=== PATIENT | male | born 1935 | race Caucasian/White ===

== ENCOUNTER 2018-03-06 13:40 | Emergency (ER) | payer OTHER, SELFPAY ==
[2018-03-06 13:46] VITALS: BP 144/78; PULSE 78; RESP 18; TEMP 36.6; O2SAT 100
--- NOTE | 2018-03-06 13:49 | DI.RAD.S_ITS ---
PROCEDURE: XR FINGER RT MIN 2V INDICATIONS: crush injury to Right 3 (middle) finger TECHNIQUE: AP hand, 2 views of the 3rd (middle) finger(s) acquired. COMPARISON: [facility], , WRIST MINIMUM 3 VIEWS RIGHT, 09/10/2012, 11:00. [facility], , FOREARM RIGHT, 09/10/2012, 11:00. FINDINGS: Bones: No displaced fractures or dislocations are identified involving the 3rd right digit. Moderate degenerative changes of the 3rd digit are present, most pronounced involving the distal interphalangeal joint. There is a small metallic density identified on the dorsal-ulnar aspect of the mid portion of the proximal phalanx of the right 3rd digit. Moderate to severe degenerative changes are evident throughout the remainder of the right hand involving the interphalangeal joints, predominantly. The discrete degenerative changes are most pronounced involving the 2nd and 3rd digits. Soft tissues: Scattered vascular calcifications and chondrocalcinosis of the wrist are present. There is metallic density identified overlying the distal radius, which is not included on the orthogonal images. However, this density was present on previous exams and is unchanged. IMPRESSION: 1. Soft tissue swelling involving the distal aspect of the 3rd right digit. No fractures are evident. 2. Age-indeterminate metallic foreign body overlying the proximal phalanx of the 3rd digit. 3. Moderate to severe degenerative changes of the right hand are most pronounced involving the 2nd and 3rd digits. 4. 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 However, calcium pyrophosphate deposition disease may also have this appearance. Dictated by: Nadeem Sanders M.D. on 03/06/2018 at 13:20 Approved by: Nadeem Sanders M.D. on 03/06/2018 at 13:23
--- NOTE | 2018-03-06 14:08 | ED.SKABFB ---
HPI - Skin/Abscess/Foreign Bdy General Chief complaint: Skin/Abscess/Foreign Body Stated complaint: rt middle finger cut Time Seen by Provider: 03/06/18 13:52 Source: patient and family Mode of arrival: ambulatory Limitations: no limitations History of Present Illness HPI narrative: 82-year-old nonsmoking male presents with a chief complaint of an injury to the volar surface of his right middle finger just prior to arrival. He states his tetanus should be updated as he had a laceration last year. He was moving lumbar when a heavy piece of wood fell on his finger crushing the tip of his middle finger. He has full range of motion and denies any numbness or tingling but does have bleeding wound on the volar surface. He denies other injury and is otherwise well and free of complaint MD complaint: laceration Onset (ago): minute(s) Tetanus up to date: yes Location: R hand Severity: mild Quality: aching Pain Consistency: constant Relieving factors: none Exacerbating factors: none Treatments prior to arrival: none Related Data Home Medications Medication Instructions Recorded Confirmed CA PANTOTHENATE/FOLIC ACID/VIT 1 tab PO Q DAY #0 01/25/11 (MULTIVITAMIN) Fish Oil (#OMEGA-3 FISH OIL) 1,200 mg PO Q DAY #0 01/17/12 cholecalciferol (vitamin D3) 1,000 iu PO Q DAY #0 01/17/12 [Vitamin D3] Previous Rx's Medication Instructions Recorded bupropion HCl [Wellbutrin SR] 150 mg PO BID #180 tab 04/15/17 cephalexin [Keflex] 500 mg PO QID 7 Days #28 cap 03/06/18 Allergies Allergy/AdvReac Type Severity Reaction Status Date / Time No Known Drug Allergies Allergy Verified 03/06/18 13:48 Review of Systems Review of Systems All systems reviewed & are unremarkable except as noted in HPI and below Constitutional Denies chills, Denies fever(s), Denies lethargy and Denies weakness Eyes Denies change in vision, Denies eye discharge, Denies irritation and Denies loss of vision ENT Ears, Nose, Mouth, and Throat: Denies change in voice, Denies neck pain and Denies sore throat Cardiovascular Denies chest pain, Denies irregular heart rhythm, Denies lightheadedness, Denies palpitations, Denies dyspnea, Denies dyspnea on exertion and Denies orthopnea Respiratory Denies cough, Denies dyspnea, Denies dyspnea on exertion and Denies wheezing Gastrointestinal Gastrointestinal: Denies abdominal pain, Denies change in bowel habits, Denies diarrhea, Denies nausea and Denies vomiting Genitourinary Denies hematuria, Denies flank pain, Denies urinary incontinence and Denies urinary urgency Musculoskeletal Reports joint swelling, Reports limited range of motion and Denies neck pain Integumentary/Breasts Denies pruritus, Denies erythema, Denies rash and Reports wounds Neurologic Denies confusion, Denies loss of vision and Denies weakness Psychiatric Denies anxiety, Denies confusion, Denies depression, Denies homicidal ideation and Denies suicidal ideation Endocrine Denies palpitations Hematologic/Lymphatic Denies easy bruising Allergic/Immunologic Denies wheezing [facility] Medical History Diverticular disease (Chronic) 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) Hyperlipidemia (Chronic) Kidney disease (Chronic) Cataracts, bilateral (Resolved) Head injury (Resolved 01/31/17) History of brachytherapy (Resolved) Prostate cancer (Resolved) Surgical History History of left cataract surgery (Resolved 09/17/12) History of repair of rotator cuff (Resolved 2007) History of right cataract surgery (Resolved 10/01/12) History of tonsillectomy (Resolved) Family History Father Family history of alcohol abuse Alzheimer's disease Mother Fam hx-ischem heart disease Heart failure CAD (coronary artery disease) Diabetes mellitus Hypertension Stroke Social History Smoking Status: Never smoker Exam Narrative Exam Narrative: GEN: AOx3 and in mild distress EYES: Pupils are equal, round, and reactive to light and accommodation. Extraoccular muscles are intact bilaterally. There is no subconjunctival hemorrhage or exudate. CHEST: Lungs are clear to auscultation bilaterally and free of wheezes, rales, or rhonchi. Heart rate is regular rhythm, there are no murmurs, clicks, rubs, or gallops. There is no chest wall tenderness. ABD: Abdomen is soft and nontender. There is no guarding or rebound. Bowel sounds are normal in all 4 quadrants. There is no mass or organomegaly. EXT: Crush injury to distal right middle finger without subungual hematoma or any nail involvement. He has full but painful range of motion. Finger visualized under bloodless field SKIN: Warm, pink, and dry. No erythema or rash Initial Vital Signs Initial Vital Signs: Vital Signs Temperature 97.8 F 03/06/18 13:46 Pulse Rate 78 03/06/18 13:46 Respiratory Rate 18 03/06/18 13:46 Blood Pressure 144/78 H 03/06/18 13:46 Pulse Oximetry 100 03/06/18 13:46 Procedures Laceration Repair Laceration 1: Site: hand Side (If applicable): right Size (cm): 2 Description: flap Depth: simple, single layer Local Anesthetic: lidocaine 1% and with bicarb Pre-repair: wound explored Skin layer closed with: nylon Size (cm): 5-0 Number of sutures: 6 Technique: simple, interrupted Course Orders Ordered: ED Orders 03/06/18 13:49 XR finger RT min 2V Stat Vital Signs - 8 hr 03/06/18 13:46 03/06/18 15:37 Temperature 97.8 F 98.5 F Pulse Rate 78 70 Respiratory Rate 18 14 Blood Pressure 144/78 H Blood Pressure [Left Arm] 140/72 Pulse Oximetry 100 99 Discharge Plan Departure Patient Disposition: Home Clinical Impression: Laceration of finger, middle Discharge Date/Time: 03/06/18 15:38 Interventions: ED Discharge Assessment Last Done: 03/06/18 15:37 Instructions: DI for Laceration Repair Activity Restrictions/Additional Instructions: Please keep the wound clean and dry to the best of your ability. Please monitor for signs of infection such as redness to the skin or increasing pain. Have the sutures removed by your doctor in about 7 days. If you are unable to get into your doctor, we would be happy to remove the sutures in that same timeframe. Prescriptions: New cephalexin [Keflex] 500 mg capsule 500 mg PO QID 7 Days Qty: 28 RF: 0 No Action CA PANTOTHENATE/FOLIC ACID/VIT (MULTIVITAMIN) 1 tab PO Q DAY Qty: 0 RF: 0 cholecalciferol (vitamin D3) [Vitamin D3] 1,000 UNIT tablet 1,000 iu PO Q DAY Qty: 0 RF: 0 Fish Oil (#OMEGA-3 FISH OIL) 1,200 mg PO Q DAY Qty: 0 RF: 0 bupropion HCl [Wellbutrin SR] 150 MG tablet extended release 12 hr 150 mg PO BID Qty: 180 RF: 3 Referrals: Lucas Pickens MD [Primary Care Provider] -
[2018-03-06 15:37] VITALS: BP 140/72; PULSE 70; RESP 14; TEMP 36.9; O2SAT 99
== END 2018-03-06 15:38 | disposition home or self-care (01) ==
PROVIDERS: Emergency Provider Emergency Medicine; Family Provider Family Medicine; PCP Family Medicine
DX: S61.212A Laceration without foreign body of right middle finger without damage to nail, initial encounter (principal); W23.0XXA Caught, crushed, jammed, or pinched between moving objects, initial encounter
CPT/HCPCS: 73140; 99282; 99283

== ENCOUNTER → 2018-07-16 13:50 | Outpatient (CLI) | payer OTHER, SELFPAY ==
[2018-07-16 14:35] LABS: Add Manual Diff / Slide Review NO; Basophils Absolute Auto 0 /uL (0-100); Basophils Percent Auto 0.8 % (0-2); Eosinophils Absolute Auto 200 /uL (0-450); Eosinophils Percent Auto 4.2 % (2-4); Hematocrit 45.1 % (41-53); Hemoglobin 14.7 g/dL (13.5-17.5); Lymphocytes Absolute Auto 1300 /uL (1100-4500); Lymphocytes Percent Auto 25.5 % (25-40); Mean Corpuscular HGB Conc 32.6 % (30-36); Mean Corpuscular Hemoglobin 29.9 PG (26-34); Mean Corpuscular Volume 91.8 fL (80-100); Monocytes Absolute Auto 500 /uL (0-900); Monocytes Percent Auto 10.8 % (3-14); Neutrophils Absolute Auto 3000 /uL (1500-7000); Neutrophils Percent Auto 58.7 % (50-75); Platelet Count 301 X10^3/uL (150-400); Red Blood Cell Count 4.91 X10^6/uL (4.5-5.9); Red Cell Distribution Width 14.3 % (11.6-14.8)
[2018-07-16 14:52] LABS: Alanine Aminotransferase 39 IU/L (21-72); Albumin 4.4 g/dL (3.5-5.0); Albumin Globulin Ratio 1.2 (1.0-2.8); Alkaline Phosphatase 68 U/L (38-126); Aspartate Aminotransferase 47 IU/L (17-59); BUN Creatinine Ratio 15.8 (6-22); Bilirubin Total 0.5 mg/dL (0.2-1.3); Blood Urea Nitrogen 19 mg/dL (9-20); Carbon Dioxide 24 mmol/L (22-32); Chloride 105 mmol/L (98-107); Cholesterol 219 mg/dL (140-199); Estimated Glomerular Filt Rate 58.3 mL/min (>60); Globulin 3.7 g/dL (1.7-4.1); Glucose 107 mg/dL (80-110); HDL Cholesterol 55 mg/dL (40-60); HEMOLYSIS < 15 (0-50); LDL Cholesterol Calculated 150 mg/dL (<100); Potassium 4.2 mmol/L (3.4-5.1); Sodium 139 mmol/L (137-145); Total Protein 8.1 g/dL (6.3-8.2); Triglycerides 71 mg/dL (35-150)
[2018-07-16 15:41] LABS: Prostate Specific Antigen < 0.064 ng/mL (0.10-4.00)
[2018-07-16 15:41] LABS: Thyroid Stimulating Hormone 3.15 uIU/mL (0.47-4.68)
[2018-07-16 15:51] LABS: Creatinine Urine Random 145.5 mg/dL
[2018-07-16 15:54] LABS: Microalbumi Creatinin Ratio Ur 6.1 ug/mg CR (<30); Microalbumin Urine Random 0.9 mg/dL (0-1.6)
[2018-07-18 17:20] LABS: Fecal Immunochemical Test NOT DETECTED (NOT DETECTED)
== END ==
PROVIDERS: Family Provider Family Medicine; PCP Family Medicine; Visit Provider Urology
DX: E78.2 Mixed hyperlipidemia (principal); I10 Essential (primary) hypertension; R89.9 Unspecified abnormal finding in specimens from other organs, systems and tissues; R94.6 Abnormal results of thyroid function studies; Z85.46 Personal history of malignant neoplasm of prostate; Z12.11 Encounter for screening for malignant neoplasm of colon
CPT/HCPCS: 36415; 80053; 80061; 82043; 82274; 82570; 84153; 84443; 85025

== ENCOUNTER → 2018-08-07 08:37 | Outpatient (CLI) | payer OTHER, SELFPAY | PROVIDERS: Family Provider Family Medicine; PCP Family Medicine; Visit Provider Urology | DX: Z85.46 Personal history of malignant neoplasm of prostate (principal) | CPT/HCPCS: 36415; 84403 ==

== ENCOUNTER → 2019-09-08 09:51 | Outpatient (CLI) | payer OTHER, SELFPAY ==
[2019-09-08 11:35] LABS: Testosterone 121 ng/dL (71.8-623)
[2019-09-08 11:40] LABS: Prostate Specific Antigen < 0.064 ng/mL (0.10-4.00)
== END ==
PROVIDERS: Family Provider Family Medicine; PCP Family Medicine; Referring Provider Urology; Visit Provider Urology
DX: Z85.46 Personal history of malignant neoplasm of prostate (principal)
CPT/HCPCS: 36415; 84153; 84403

== ENCOUNTER → 2020-01-14 11:48 | Outpatient (CLI) | payer OTHER, SELFPAY ==
[2020-01-14 12:47] LABS: Add Manual Diff / Slide Review NO; Basophils Absolute Auto 0 /uL (0-100); Basophils Percent Auto 0.9 % (0-2); Eosinophils Absolute Auto 200 /uL (0-450); Eosinophils Percent Auto 3.2 % (2-4); Hematocrit 41.2 % (41-53); Hemoglobin 13.8 g/dL (13.5-17.5); Lymphocytes Absolute Auto 1200 /uL (1100-4500); Lymphocytes Percent Auto 21.7 % (25-40); Mean Corpuscular HGB Conc 33.4 % (30-36); Mean Corpuscular Volume 92.8 fL (80-100); Monocytes Absolute Auto 500 /uL (0-900); Neutrophils Absolute Auto 3600 /uL (1500-7000); Neutrophils Percent Auto 65.2 % (50-75); Platelet Count 326 X10^3/uL (150-400); Red Blood Cell Count 4.44 X10^6/uL (4.5-5.9); Red Cell Distribution Width 13.9 % (11.6-14.8); White Blood Cell Count 5.5 X10^3/uL (4.5-11.0)
[2020-01-14 13:07] LABS: Alanine Aminotransferase 19 IU/L (<50); Albumin 4.2 g/dL (3.5-5.0); Albumin Globulin Ratio 1.1 (1.0-2.8); Alkaline Phosphatase 78 U/L (38-126); Aspartate Aminotransferase 29 IU/L (17-59); BUN Creatinine Ratio 14.2 (6-22); Bilirubin Total 0.5 mg/dL (0.2-1.3); Blood Urea Nitrogen 17 mg/dL (9-20); Calcium 9.1 mg/dL (8.4-10.2); Carbon Dioxide 25 mmol/L (22-32); Chloride 104 mmol/L (98-107); Cholesterol 194 mg/dL (140-199); Globulin 3.7 g/dL (1.7-4.1); Glucose 123 mg/dL (80-110); HDL Cholesterol 53 mg/dL (40-60); HEMOLYSIS < 15 (0-50); LDL Cholesterol Calculated 129 mg/dL (<100); Potassium 4.4 mmol/L (3.4-5.1); Sodium 139 mmol/L (137-145); Total Protein 7.9 g/dL (6.3-8.2); Triglycerides 61 mg/dL (35-150)
== END ==
PROVIDERS: Family Provider Family Medicine; PCP Family Medicine; Referring Provider Family Medicine; Visit Provider Family Medicine
DX: E78.2 Mixed hyperlipidemia (principal)
CPT/HCPCS: 36415; 80053; 80061; 85025

== ENCOUNTER → 2020-02-02 13:56 | Outpatient (CLI) | payer OTHER, SELFPAY ==
[2020-02-03 14:36] LABS: Fecal Immunochemical Test Negative (Negative)
== END ==
PROVIDERS: Family Provider Family Medicine; PCP Family Medicine; Referring Provider Family Medicine; Visit Provider Family Medicine
DX: E78.2 Mixed hyperlipidemia (principal)
CPT/HCPCS: 82274

== ENCOUNTER → 2020-02-08 14:03 | Outpatient (CLI) | payer OTHER, SELFPAY ==
[2020-02-08 14:40] LABS: BUN Creatinine Ratio 15.6 (6-22); Blood Urea Nitrogen 20 mg/dL (9-20); Calcium 9.2 mg/dL (8.4-10.2); Carbon Dioxide 31 mmol/L (22-32); Chloride 106 mmol/L (98-107); Estimated Glomerular Filt Rate 53.8 mL/min (>60); Glucose 112 mg/dL (80-110); HEMOLYSIS < 15 (0-50); Hemoglobin A1C% w Est Avg Glu 6.3 % (4.0-6.0); Potassium 4.7 mmol/L (3.4-5.1); Sodium 141 mmol/L (137-145)
== END ==
PROVIDERS: Family Provider Family Medicine; PCP Family Medicine; Referring Provider Family Medicine; Visit Provider Family Medicine
DX: R73.9 Hyperglycemia, unspecified (principal)
CPT/HCPCS: 36415; 80048; 83036

== ENCOUNTER → 2020-03-23 13:08 | Outpatient (CLI) | payer OTHER, SELFPAY ==
[2020-03-23 13:55] LABS: BUN Creatinine Ratio 17.5 (6-22); Blood Urea Nitrogen 20 mg/dL (9-20); Estimated Glomerular Filt Rate > 60.0 mL/min (>60)
== END ==
PROVIDERS: Family Provider Family Medicine; PCP Family Medicine; Referring Provider Family Medicine; Visit Provider Family Medicine
DX: C61 Malignant neoplasm of prostate (principal); R94.4 Abnormal results of kidney function studies
CPT/HCPCS: 36415; 82565; 84520

== ENCOUNTER → 2020-05-24 14:29 | Outpatient (CLI) | payer OTHER, SELFPAY ==
[2020-05-24 15:59] LABS: Hemoglobin A1C% w Est Avg Glu 6.5 % (4.0-6.0)
[2020-05-24 16:09] LABS: BUN Creatinine Ratio 16.9 (6-22); Blood Urea Nitrogen 23 mg/dL (9-20); Carbon Dioxide 30 mmol/L (22-32); Chloride 104 mmol/L (98-107); Estimated Glomerular Filt Rate 50.2 mL/min (>60); Glucose 115 mg/dL (80-110); HEMOLYSIS < 15 (0-50); Potassium 4.3 mmol/L (3.4-5.1); Sodium 137 mmol/L (137-145)
== END ==
PROVIDERS: Family Provider Family Medicine; PCP Internal Medicine; Referring Provider Internal Medicine; Visit Provider Internal Medicine
DX: N18.9 Chronic kidney disease, unspecified (principal); E11.9 Type 2 diabetes mellitus without complications
CPT/HCPCS: 36415; 80048; 83036

== ENCOUNTER → 2020-08-25 09:16 | Outpatient (CLI) | payer OTHER, SELFPAY ==
[2020-08-25 10:33] LABS: Hemoglobin A1C% w Est Avg Glu 6.3 % (4.0-6.0)
== END ==
PROVIDERS: Family Provider Family Medicine; PCP Internal Medicine; Referring Provider Internal Medicine; Visit Provider Internal Medicine
DX: E11.21 Type 2 diabetes mellitus with diabetic nephropathy (principal); N18.31 Chronic kidney disease, stage 3a
CPT/HCPCS: 36415; 83036

== ENCOUNTER → 2020-09-29 14:18 | Outpatient (CLI) | payer OTHER, SELFPAY ==
[2020-09-29 18:52] LABS: Prostate Specific Antigen < 0.064 ng/mL (0.10-4.00)
== END ==
PROVIDERS: Family Provider Family Medicine; PCP Internal Medicine; Referring Provider Internal Medicine; Visit Provider Internal Medicine
DX: Z85.46 Personal history of malignant neoplasm of prostate (principal)
CPT/HCPCS: 36415; 84153

== ENCOUNTER 2020-10-22 17:48 | Emergency (ER) | payer OTHER, SELFPAY ==
[2020-10-22 18:08] VITALS: BP 151/85; PULSE 85; RESP 18; TEMP 36.8; O2SAT 99; BMI 24.4
--- NOTE | 2020-10-22 19:10 | ED.WOUNDLAC ---
HPI - Wound/Laceration General Chief Complaint: Wound/Laceration Stated Complaint: RT THUMB INJURY Time Seen by Provider: 10/22/20 18:52 Source: patient Mode of arrival: Family Vehicle Limitations: no limitations History of Present Illness HPI narrative: 84-year-old male nonsmoker with noncontributory medical history and current tetanus status presents with a chief complaint of an accidental injury to his right thumb. He states that he was working with a circular saw prior to his arrival and caused a large irregular laceration to the tip of his right thumb with soft tissue loss. There was fair amount of bleeding initially, he washed it heavily and presents to us. He has very little pain and is otherwise well and free of complaint Onset (ago): hour(s) Body four view annotation: 1. Place: home Patient tetanus UTD: Yes Context: accidental Treatments prior to arrival: bandage Related Data Home Medications Medication Instructions Recorded Confirmed CA PANTOTHENATE/FOLIC ACID/VIT 1 tab PO Q DAY #0 01/25/11 10/20/20 (MULTIVITAMIN) Fish Oil (#OMEGA-3 FISH OIL) 1,200 mg PO Q DAY #0 01/17/12 10/20/20 cholecalciferol (vitamin D3) 1,000 iu PO Q DAY #0 01/17/12 10/20/20 [Vitamin D3] Calcium Citrate w/Magnesium 2 tab PO BEDTIME 01/01/20 10/20/20 Previous Rx's Medication Instructions Recorded bupropion HCl 150 mg tablet,12 hr 150 mg PO BID #180 tab 10/27/19 sustained-release cephalexin 500 mg PO Q6H 7 Days #28 cap 10/22/20 Allergies Allergy/AdvReac Type Severity Reaction Status Date / Time No Known Drug Allergies Allergy Verified 10/22/20 18:08 Review of Systems Constitutional Constitutional: Denies chills, Denies fatigue, Denies fever(s), Denies frequent falls, Denies lethargy and Denies weakness Eyes Eyes: Denies change in vision, Denies eye discharge, Denies irritation and Denies loss of vision ENT Ears, Nose, Mouth, and Throat: Denies change in voice, Denies dizziness, Denies neck pain, Denies sore throat and Denies throat swelling Cardiovascular Cardiovascular: Denies chest pain, Denies irregular heart rhythm, Denies lightheadedness, Denies palpitations, Denies dyspnea, Denies dyspnea on exertion and Denies orthopnea Respiratory Respiratory: Denies cough, Denies dyspnea, Denies dyspnea on exertion and Denies wheezing Gastrointestinal Gastrointestinal: Denies abdominal pain, Denies change in bowel habits, Denies diarrhea, Denies nausea and Denies vomiting Musculoskeletal Musculoskeletal: Denies neck pain and Denies numbness Integumentary/Breasts Skin/Breast: Denies pruritus, Denies erythema, Denies rash and Reports wounds Neurologic Neurologic: Denies behavioral changes, Denies confusion, Denies dizziness, Denies frequent falls, Denies loss of vision, Denies numbness and Denies weakness Psychiatric Psychiatric: Denies anxiety, Denies behavioral changes, Denies confusion, Denies depression, Denies homicidal ideation and Denies suicidal ideation Endocrine Endocrine: Denies fatigue, Denies flushing and Denies palpitations Hematologic/Lymphatic Hematologic/Lymphatic: Denies easy bruising Allergic/Immunologic Allergic/Immunologic: Denies urticaria, Denies throat swelling and Denies wheezing Patient History Medical History Cataracts, bilateral Diverticular disease 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 Head injury (01/31/17) History of brachytherapy History of malignant neoplasm of prostate Hyperlipidemia Kidney disease Prostate cancer Surgical History History of left cataract surgery (09/17/12) History of repair of rotator cuff (2007) History of right cataract surgery (10/01/12) History of tonsillectomy Family History Father Family history of alcohol abuse Alzheimer's disease Mother Fam hx-ischem heart disease Heart failure CAD (coronary artery disease) Diabetes mellitus Hypertension Stroke Social History Smoking Status: Never smoker Smoking Status: Never smoker alcohol intake frequency: holidays/special occasions only Substance Use Type: does not use Exam Narrative Exam Narrative: GEN: AOx3 and in mild distress EYES: Pupils are equal, round, and reactive to light and accommodation. Extraoccular muscles are intact bilaterally. There is no subconjunctival hemorrhage or exudate. CHEST: Lungs are clear to auscultation bilaterally and free of wheezes, rales, or rhonchi. Heart rate is regular rhythm, there are no murmurs, clicks, rubs, or gallops. There is no chest wall tenderness. ABD: Abdomen is soft and nontender. There is no guarding or rebound. Bowel sounds are normal in all 4 quadrants. There is no mass or organomegaly. EXT: Full range of motion of right thumb, large regular avulsion type laceration with soft tissue loss measuring 2 x 1 cm on lateral thumb distal to the interphalangeal joint. No active bleeding, no foreign body, no exposure of bone or tendon. SKIN: Warm, pink, and dry. No erythema or rash Initial Vital Signs Initial Vital Signs: Vital Signs Temperature 98.3 F 10/22/20 18:08 Pulse Rate 85 10/22/20 18:08 Respiratory Rate 18 10/22/20 18:08 Blood Pressure 151/85 H 10/22/20 18:08 Pulse Oximetry 99 10/22/20 18:08 Course Orders Ordered: Discontinued Medications Bupivacaine HCl (Bupivacaine 0.5% (Pf) Vial) 5 ml SUBCUT NOW ONE Stop: 10/22/20 20:30 Last Admin: 10/22/20 21:02 Dose: 5 ml Documented by: GRAHAM Cefazolin Sodium (Cephalexin 250 Mg Prepack) 1 bottle MISC SEEINSTR ONE Stop: 10/22/20 20:30 Last Admin: 10/22/20 21:03 Dose: 1 bottle Documented by: GRAHAM Consultations Consultation #1: Discussed with on-call orthopedist who recommends washing, antibiotics, tetanus update, wet to dry dressing and follow-up with wound care Vital Signs Vital signs: Vital Signs - 8 hr 10/22/20 22:43 Pulse Rate 72 Respiratory Rate 16 Blood Pressure 128/73 Pulse Oximetry 99 MDM - Wound/Laceration Imaging Data Extremity x-ray #1: Radiologist's Impression: [address] [address] ReportSigned Patient: Jluis Perea LMR#: [id number]: [id number]:[id number]/Sex: 84 / MDate of Service: 10/22/20Loc: EDAccession Number: [id number] Procedure: XR finger RT min 2V Ordering Provider: Willie Dumont D.O. PROCEDURE: XR FINGER RT MIN 2V INDICATIONS: deep thumb laceration from power tool TECHNIQUE: AP hand, 2 views of the 3 finger(s) acquired. COMPARISON: [facility], CR, XR FINGER RT MIN 2V, 03/06/2018, 13:58. FINDINGS: Bones: No fractures or dislocations. No suspicious bony lesions. Prominent multilevel IP arthritic changes particularly at 2nd DIP joints. Soft tissues: No suspicious soft tissue calcifications. Rounded metallic density is noted overlying the distal radial shaft. IMPRESSION: 1. No visualized acute fracture or dislocation. However, if clinical concern and/or pain persist, short interval imaging followup in 7-10 days is recommended, as occult injury cannot be definitively excluded. 2. Rounded metallic density overlying distal radius. Recommend correlation to area of foreign body concern. Dictated by: Ashley Winter M.D. on 10/22/2020 at 22:06 Approved by: Ashley Winter M.D. on 10/22/2020 at 22:08 Discharge Plan Departure Patient Disposition: Home Clinical Impression: Laceration of thumb, right, complicated Qualifiers: Encounter type: initial encounter Qualified Code(s): S61.011A - Laceration without foreign body of right thumb without damage to nail, initial encounter Instructions: DI for Avulsion Laceration (Not Requiring Sutures) Activity Restrictions/Additional Instructions: *You have been diagnosed with [ Avulsion laceration of right thumb, no sutures indicated you will need dressing changes and follow up with wound care] *What to do: *Please continue to take your regular medications as directed. [x] prescription sent to your pharmacy ([facility]) [ ] New medication written as a paper prescription [ ] No new medications given *Please follow up with Wound Care in 2-3 days, call for an appointment. Let them know you were seen in the Emergency Department and that we ask that you be seen in follow up. We will electronically transmit a record of today's note if your PCP is in our system *If you do not have a primary care provider please contact the [facility] Resource line at [phone]. They will ask some questions about your medical history and help get you set up with a doctor in the community. *Return to Emergency Department if you should have any new, worsening or concerning symptoms, such as [fever greater than 101 F, shaking chills, worsening pain, persistent vomiting or other bothersome symptoms] Prescriptions: New cephalexin 500 mg capsule 500 mg PO Q6H 7 Days Qty: 28 RF: 0 No Action CA PANTOTHENATE/FOLIC ACID/VIT (MULTIVITAMIN) 1 tab PO Q DAY Qty: 0 RF: 0 cholecalciferol (vitamin D3) [Vitamin D3] 1,000 UNIT tablet 1,000 iu PO Q DAY Qty: 0 RF: 0 Fish Oil (#OMEGA-3 FISH OIL) 1,200 mg PO Q DAY Qty: 0 RF: 0 bupropion HCl [Wellbutrin SR] 150 mg tablet sustained-release 12 hr 150 mg PO BID Qty: 180 RF: 1 Calcium Citrate w/Magnesium 2 tab PO BEDTIME RF: 0 Referrals: Dylan Real MD [Physician] - Cody Quinones MD [Primary Care Provider] -
--- NOTE | 2020-10-22 20:29 | DI.RAD.S_ITS ---
PROCEDURE: XR FINGER RT MIN 2V INDICATIONS: deep thumb laceration from power tool TECHNIQUE: AP hand, 2 views of the 3 finger(s) acquired. COMPARISON: [facility], , XR FINGER RT MIN 2V, 03/06/2018, 13:58. FINDINGS: Bones: No fractures or dislocations. No suspicious bony lesions. Prominent multilevel IP arthritic changes particularly at 2nd DIP joints. Soft tissues: No suspicious soft tissue calcifications. Rounded metallic density is noted overlying the distal radial shaft. IMPRESSION: 1. No visualized acute fracture or dislocation. However, if clinical concern and/or pain persist, short interval imaging followup in 7-10 days is recommended, as occult injury cannot be definitively excluded. 2. Rounded metallic density overlying distal radius. Recommend correlation to area of foreign body concern. Dictated by: Ashley Winter M.D. on 10/22/2020 at 22:06 Approved by: Ashley Winter M.D. on 10/22/2020 at 22:08
[2020-10-22] MEDS: BUPIVACAINE 0.5% (PF) VIAL 5 ML SUBCUT (21:02)
[2020-10-22] MEDS: cephALEXin 250 MG PREPACK 1 BOTTLE MISC (21:03)
[2020-10-22 22:43] VITALS: BP 128/73; PULSE 72; RESP 16; O2SAT 99
== END 2020-10-22 22:44 | disposition home or self-care (01) ==
PROVIDERS: Emergency Provider Emergency Medicine; Family Provider Family Medicine; PCP Internal Medicine
DX: S61.011A Laceration without foreign body of right thumb without damage to nail, initial encounter (principal); W29.3XXA Contact with powered garden and outdoor hand tools and machinery, initial encounter
CPT/HCPCS: 73140; 99283

== ENCOUNTER → 2020-11-02 13:01 | Outpatient (CLI) | payer OTHER, SELFPAY | PROVIDERS: Family Provider Internal Medicine; PCP Internal Medicine; Referring Provider Emergency Medicine; Visit Provider Family Medicine | DX: E11.628 Type 2 diabetes mellitus with other skin complications (principal); S61.001A Unspecified open wound of right thumb without damage to nail, initial encounter | CPT/HCPCS: 11042; 99204; 99213 ==

== ENCOUNTER → 2020-11-10 13:57 | Outpatient (CLI) | payer OTHER, SELFPAY | PROVIDERS: Family Provider Internal Medicine; PCP Internal Medicine; Referring Provider Internal Medicine; Visit Provider Family Medicine | DX: E11.628 Type 2 diabetes mellitus with other skin complications (principal); S61.001A Unspecified open wound of right thumb without damage to nail, initial encounter; R60.0 Localized edema | CPT/HCPCS: 11042 ==

== ENCOUNTER → 2020-11-17 14:47 | Outpatient (CLI) | payer OTHER, SELFPAY | PROVIDERS: Family Provider Internal Medicine; PCP Internal Medicine; Referring Provider Internal Medicine; Visit Provider Family Medicine | DX: E11.628 Type 2 diabetes mellitus with other skin complications (principal); S61.001A Unspecified open wound of right thumb without damage to nail, initial encounter; R60.0 Localized edema | CPT/HCPCS: 11042 ==

== ENCOUNTER → 2020-11-24 13:31 | Outpatient (CLI) | payer OTHER, SELFPAY | PROVIDERS: Family Provider Internal Medicine; PCP Internal Medicine; Referring Provider Internal Medicine; Visit Provider Family Medicine | DX: S61.011A Laceration without foreign body of right thumb without damage to nail, initial encounter (principal); E11.628 Type 2 diabetes mellitus with other skin complications; W31.2XXS Contact with powered woodworking and forming machines, sequela | CPT/HCPCS: 11042 ==

== ENCOUNTER → 2020-12-01 15:27 | Outpatient (CLI) | payer OTHER, SELFPAY | PROVIDERS: Family Provider Internal Medicine; PCP Internal Medicine; Referring Provider Internal Medicine; Visit Provider Family Medicine | DX: S61.001A Unspecified open wound of right thumb without damage to nail, initial encounter (principal); E11.628 Type 2 diabetes mellitus with other skin complications; M79.641 Pain in right hand | CPT/HCPCS: 11042 ==

== ENCOUNTER → 2020-12-12 14:59 | Outpatient (CLI) | payer OTHER, SELFPAY | PROVIDERS: Family Provider Internal Medicine; PCP Internal Medicine; Referring Provider Internal Medicine; Visit Provider Family Medicine | DX: S61.001D Unspecified open wound of right thumb without damage to nail, subsequent encounter (principal) | CPT/HCPCS: 99212; 99213 ==

== ENCOUNTER 2022-03-13 10:07 | Emergency (ER) | payer MEDICARE, SELFPAY ==
[2022-03-13 10:50] VITALS: BP 131/77; PULSE 86; RESP 14; TEMP 36.8; O2SAT 99
[2022-03-13 11:19] LABS: Add Manual Diff / Slide Review NO; Basophils Absolute Auto 0 /uL (0-100); Basophils Percent Auto 0.2 % (0-2); Eosinophils Absolute Auto 0 /uL (0-450); Hematocrit 42.7 % (41-53); Hemoglobin 13.9 g/dL (13.5-17.5); Lymphocytes Absolute Auto 1000 /uL (1100-4500); Lymphocytes Percent Auto 5.9 % (25-40); Mean Corpuscular HGB Conc 32.7 % (30-36); Mean Corpuscular Hemoglobin 30.2 PG (26-34); Mean Corpuscular Volume 92.6 fL (80-100); Monocytes Absolute Auto 1400 /uL (0-900); Monocytes Percent Auto 8.2 % (3-14); Neutrophils Absolute Auto 14100 /uL (1500-7000); Neutrophils Percent Auto 85.7 % (50-75); Platelet Count 315 X10^3/uL (150-400); Red Blood Cell Count 4.61 X10^6/uL (4.5-5.9); Red Cell Distribution Width 14.5 % (11.6-14.8); White Blood Cell Count 16.5 X10^3/uL (4.5-11.0)
[2022-03-13 11:26] LABS: Alanine Aminotransferase 22 IU/L (<50); Albumin Globulin Ratio 1.3 (1.0-2.8); Alkaline Phosphatase 60 U/L (38-126); Aspartate Aminotransferase 33 IU/L (17-59); Bilirubin Total 0.4 mg/dL (0.2-1.3); Blood Urea Nitrogen 32 mg/dL (9-20); Calcium 9.4 mg/dL (8.4-10.2); Carbon Dioxide 24 mmol/L (22-32); Chloride 103 mmol/L (98-107); Estimated Glomerular Filt Rate 50 mL/min (>60); Globulin 3.2 g/dL (1.7-4.1); Glucose 125 mg/dL (80-110); HEMOLYSIS < 15 (0-50); Potassium 3.6 mmol/L (3.4-5.1); Sodium 140 mmol/L (137-145); Total Protein 7.2 g/dL (6.3-8.2)
[2022-03-13 11:47] VITALS: PULSE 88; O2SAT 97
[2022-03-13 11:50] VITALS: BP 119/72; PULSE 86; RESP 21; O2SAT 98
[2022-03-13 12:00] VITALS: BP 113/57; PULSE 85; RESP 30; O2SAT 95
--- NOTE | 2022-03-13 12:19 | PC.NURSE ---
Pt reports intermittent sharp pain in stomach after eating. Nausea/vomiting intermittent since saturday and also noticed dark stools. Denies dizziness/no syncopal episodes. Hasn't been able to eat, but is able to keep water down.
[2022-03-13 12:30] VITALS: PULSE 91; RESP 30; O2SAT 98
[2022-03-13 12:31] VITALS: BP 117/58; PULSE 91; RESP 36; O2SAT 98
[2022-03-13 12:48] LABS: Lipase 51 U/L (23-300)
--- NOTE | 2022-03-13 12:54 | DI.CT.S_ITS ---
PROCEDURE: CT ABDOMEN PELVIS W CON INDICATIONS: ?gi bleed; diarrhea TECHNIQUE: After the administration of intravenous contrast, axial sections acquired from the lung bases to the pubic symphysis. Coronal and sagittal reformats were performed. For radiation dose reduction, the following was used: automated exposure control, adjustment of mA and/or kV according to patient size. COMPARISON: None. FINDINGS: Image quality: Excellent. Lung bases: Unremarkable. Heart: No significant findings. Miscellaneous: Large hiatal hernia containing the entirety of the stomach, within or Beano axial volvulus, typically not an urgent finding. ABDOMEN: Liver: Unremarkable. Gallbladder: Unremarkable. Biliary ducts: Unremarkable. Pancreas: Unremarkable. Spleen: Unremarkable. Adrenal Glands: Unremarkable. Kidneys and Ureters: Unremarkable. 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 A thickened part of the stomach near the entrance to the abdomen is felt to represent the pyloric region of the stomach. It is likely a normal appearing gastric pylorus. Small bowel unremarkable. Extensive sigmoid diverticulosis without evidence of diverticulitis. Peritoneum: No abnormal intraperitoneal fluid. No free air. Ventral Wall: No hernias. Abdominal Nodes: No retroperitoneal or mesenteric adenopathy by size criteria. Vessels: Aorta and inferior vena cava are normal in size. PELVIS: Pelvic Organs: Prostate implant seeds. Bladder: Unremarkable. Pelvic Nodes: No enlarged lymph nodes. Miscellaneous: No hernias are seen. Bones: Lumbar degenerative change. No lytic or blastic bony lesions. No compression fractures. IMPRESSION: 1. Large hiatal hernia containing stomach, which has undergone organo-axial volvulus, typically not an emergent finding. However, suggest clinical correlation. 2. Extensive sigmoid diverticulosis without evidence of diverticulitis. 3. Prostate implant seeds. 4. No evidence of metastatic disease. Dictated by: Jefferson Adams M.D. on 03/13/2022 at 14:29 Approved by: Jefferson Adams M.D. on 03/13/2022 at 14:52
--- NOTE | 2022-03-13 12:54 | DI.RAD.S_ITS ---
PROCEDURE: XR CHEST 2V INDICATIONS: gi bleed TECHNIQUE: 2 views of the chest were acquired. COMPARISON: [facility], , CHEST 2 VIEW, 04/11/2007, 14:03. FINDINGS: Surgical changes and devices: None. Lungs and pleura: Lungs are clear. No pleural effusions or pneumothorax. Mediastinum: Moderate hiatal hernia. Mediastinal contours are normal. Heart size is normal. Bones and chest wall: No suspicious bony abnormalities. Soft tissues appear unremarkable. IMPRESSION: Moderate hiatal hernia. No acute cardiopulmonary process demonstrated radiographically. Dictated by: Duke Alfonso M.D. on 03/13/2022 at 14:48 Approved by: Duke Alfonso M.D. on 03/13/2022 at 14:49
[2022-03-13 13:59] LABS: Bacteria Urine Many (>30); RBC Urine None Seen (0-5/HPF); WBC Urine 30-100/HPF (0-5/HPF)
--- NOTE | 2022-03-13 15:14 | ED_ITS ---
HPI - GI Bleed <Doris Alonso PA-C - Last Filed: 03/13/22 17:56> General Chief complaint: GI Bleed Stated complaint: suspect upper GI bleeding t-2 Time Seen by Provider: 03/13/22 12:03 Source: patient Mode of arrival: Wheelchair History of Present Illness HPI Narrative: 86-year-old male with past medical history hyperlipidemia, malignant neoplasm of the prostate presents to the ED with 3 days of nausea, vomiting, diarrhea. Patient states that his symptoms started 2 days ago when he started vomiting, with repeated episodes through the night. Patient later started experiencing several bouts of diarrhea. Patient states that the vomit and stool appeared dark, but with no chin blood. Patient denies fever, chills, chest pain, shortness of breath, lightheadedness, dizziness, syncope. Patient also states that as of this morning, he is symptom-free, is able to tolerate p.o. Related Data Home Medications Medication Instructions Recorded Confirmed CA PANTOTHENATE/FOLIC ACID/VIT 1 tab PO Q DAY ##0 01/25/11 10/20/20 (MULTIVITAMIN) Fish Oil (#OMEGA-3 FISH OIL) 1,200 mg PO Q DAY ##0 01/17/12 10/20/20 cholecalciferol (vitamin D3) 25 1,000 iu PO Q DAY ##0 01/17/12 10/20/20 mcg (1,000 unit) tablet (Vitamin D3) Calcium Citrate w/Magnesium 2 tab PO BEDTIME 01/01/20 10/20/20 Previous Rx's Medication Instructions Recorded bupropion HCl 150 mg tablet,12 hr 150 mg PO BID #180 tabs 10/27/19 sustained-release (Wellbutrin SR) cefpodoxime 200 mg tablet 200 mg PO Q12H 10 days #20 tabs 03/13/22 famotidine 40 mg tablet (Pepcid) 40 mg PO BID #60 tabs 03/15/22 ondansetron 4 mg disintegrating 4 mg PO Q6H PRN nausea and 03/15/22 tablet vomiting #10 tabs Allergies Allergy/AdvReac Type Severity Reaction Status Date / Time No Known Drug Allergies Allergy Verified 03/15/22 11:02 Review of Systems <Doris Alonso PA-C - Last Filed: 03/13/22 17:56> Review of Systems ROS Unobtainable: All systems reviewed & are unremarkable except as noted in HPI and below Constitutional Constitutional: Denies chills, Denies fatigue, Denies fever(s), Denies frequent falls, Denies lethargy and Denies weakness Eyes Eyes: Denies change in vision, Denies eye discharge, Denies irritation and Denies loss of vision ENT Ears, Nose, Mouth, and Throat: Denies change in voice, Denies dizziness, Denies neck pain, Denies sore throat and Denies throat swelling Cardiovascular Cardiovascular: Denies chest pain, Denies irregular heart rhythm, Denies lightheadedness, Denies palpitations, Denies dyspnea, Denies dyspnea on exertion and Denies orthopnea Respiratory Respiratory: Denies cough, Denies dyspnea, Denies dyspnea on exertion and Denies wheezing Gastrointestinal Gastrointestinal: Denies abdominal pain, Denies change in bowel habits, Reports diarrhea, Reports nausea and Reports vomiting Genitourinary Genitourinary: Denies hematuria, Denies flank pain, Denies urinary incontinence and Denies urinary urgency Musculoskeletal Musculoskeletal: Denies back pain, Denies muscle weakness, Denies neck pain, Denies numbness and Denies tingling Integumentary/Breasts Skin/Breast: Denies pruritus, Denies erythema, Denies rash and Denies wounds Neurologic Neurologic: Denies behavioral changes, Denies confusion, Denies dizziness, Denies frequent falls, Denies loss of vision, Denies numbness, Denies tingling and Denies weakness Psychiatric Psychiatric: Denies anxiety, Denies behavioral changes, Denies confusion, Denies depression, Denies homicidal ideation and Denies suicidal ideation Endocrine Endocrine: Denies fatigue, Denies flushing and Denies palpitations Hematologic/Lymphatic Hematologic/Lymphatic: Denies easy bruising Allergic/Immunologic Allergic/Immunologic: Denies urticaria, Denies throat swelling and Denies wheezing Patient History <Doris Alonso PA-C - Last Filed: 03/13/22 17:56> Medical History Cataracts, bilateral Diverticular disease 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 Head injury (01/31/17) History of brachytherapy History of malignant neoplasm of prostate Hyperlipidemia Kidney disease Prostate cancer Surgical History History of left cataract surgery (09/17/12) History of repair of rotator cuff (2007) History of right cataract surgery (10/01/12) History of tonsillectomy Family History Father Family history of alcohol abuse Alzheimer's disease Mother Fam hx-ischem heart disease Heart failure CAD (coronary artery disease) Diabetes mellitus Hypertension Stroke Social History Smoking Status: Never smoker Smoking Status: Never smoker alcohol intake frequency: holidays/special occasions only Substance Use Type: does not use Exam <Doris Alonso PA-C - Last Filed: 03/13/22 17:56> Narrative Exam Narrative: Const General:?cooperative, healthy appearing and comfortable HENMT Head:?normal to inspection Ears:?hearing grossly normal bilaterally Nose:?external nose normal Face and sinus:?normal facial exam and sinuses nontender Mouth:?oral mucosae normal Throat:?posterior oropharynx normal Eyes General:?appearance normal, both eyes and all related structures Neck Neck:?normal visual inspection and no lymphadenopathy noted Resp Effort & Inspection:?normal respiratory effort Auscultation:?clear to auscultation bilaterally Cardio Rate:?regular rate Rhythm:?regular rhythm GI Abdomen is soft, nondistended, nontender to palpation. There is no CVA tenderness. Guaiac positive. Neuro General:?patient alert, patient awake and patient oriented x3 Initial Vital Signs Initial Vital Signs: Vital Signs Temperature 98.2 F 03/13/22 10:50 Pulse Rate 86 03/13/22 10:50 Respiratory Rate 14 03/13/22 10:50 Blood Pressure 131/77 03/13/22 10:50 Pulse Oximetry 99 03/13/22 10:50 Oxygen Delivery Method 03/13/22 10:50 <Heidy Aguero DO - Last Filed: 03/15/22 19:03> Initial Vital Signs Initial Vital Signs: Vital Signs Temperature 98.2 F 03/13/22 10:50 Pulse Rate 86 03/13/22 10:50 Respiratory Rate 14 03/13/22 10:50 Blood Pressure 131/77 03/13/22 10:50 Pulse Oximetry 99 03/13/22 10:50 Oxygen Delivery Method 03/13/22 10:50 Course <Doris Alonso PA-C - Last Filed: 03/13/22 17:56> Orders Ordered: ED Orders 03/13/22 10:58 EKG-12 Lead Routine 03/13/22 11:16 Complete Blood Count AUTO DIFF Stat Comprehensive Metabolic Panel Stat Lipase Stat 03/13/22 12:54 CT abdomen pelvis w con Stat CXR [XR chest 2V] Stat 03/13/22 12:58 Urine Culture Stat Urine Microscopic Stat Vital Signs Vital signs: Vital Signs - 8 hr 03/13/22 10:50 03/13/22 11:47 03/13/22 11:50 Temperature 98.2 F Pulse Rate 86 88 Respiratory Rate 14 Blood Pressure 131/77 119/72 Pulse Oximetry 99 97 Oxygen Delivery Method Room Air 03/13/22 11:50 03/13/22 12:00 03/13/22 12:00 Temperature Pulse Rate 86 85 Respiratory Rate 21 30 H Blood Pressure 113/57 L Pulse Oximetry 98 95 Oxygen Delivery Method 03/13/22 12:30 03/13/22 12:31 03/13/22 12:31 Temperature Pulse Rate 91 H 91 H Respiratory Rate 30 H 36 H Blood Pressure 117/58 L Pulse Oximetry 98 98 Oxygen Delivery Method <Heidy Aguero DO - Last Filed: 03/15/22 19:03> Orders Ordered: ED Orders 03/13/22 10:58 EKG-12 Lead Routine 03/13/22 11:16 Complete Blood Count AUTO DIFF Stat Comprehensive Metabolic Panel Stat Lipase Stat 03/13/22 12:54 CT abdomen pelvis w con Stat CXR [XR chest 2V] Stat 03/13/22 12:58 Urine Culture Stat Urine Microscopic Stat Vital Signs Vital signs: Vital Signs - 8 hr 03/13/22 10:50 03/13/22 11:47 03/13/22 11:50 Temperature 98.2 F Pulse Rate 86 88 Respiratory Rate 14 Blood Pressure 131/77 119/72 Pulse Oximetry 99 97 Oxygen Delivery Method Room Air 03/13/22 11:50 03/13/22 12:00 03/13/22 12:00 Temperature Pulse Rate 86 85 Respiratory Rate 21 30 H Blood Pressure 113/57 L Pulse Oximetry 98 95 Oxygen Delivery Method 03/13/22 12:30 03/13/22 12:31 11/15/22 12:31 Temperature Pulse Rate 91 H 91 H Respiratory Rate 30 H 36 H Blood Pressure 117/58 L Pulse Oximetry 98 98 Oxygen Delivery Method MDM - GI Bleed <Doris Alonso PA-C - Last Filed: 03/13/22 17:56> Lab Data Result diagrams: 03/13/22 11:16 03/13/22 11:16 Labs: Lab Results 03/13/22 03/13/22 03/13/22 Range/Units 11:16 11:16 11:16 WBC 16.5 H (4.5-11.0) X10^3/uL RBC 4.61 (4.5-5.9) X10^6/uL Hgb 13.9 (13.5-17.5) g/dL Hct 42.7 (41-53) % MCV 92.6 (80-100) fL MCH 30.2 (26-34) PG MCHC 32.7 (30-36) % RDW 14.5 (11.6-14.8) % Plt Count 315 (150-400) X10^3/uL Neut % (Auto) 85.7 H (50-75) % Lymph % (Auto) 5.9 L (25-40) % Sanders % (Auto) 8.2 (3-14) % Eos % (Auto) 0.0 L (2-4) % Baso % (Auto) 0.2 (0-2) % Neut # (Auto) 48252 H (1238-6423) /uL Lymph # (Auto) 1000 L (4360-4893) /uL Sanders # (Auto) 1400 H (0-900) /uL Eos # (Auto) 0 (0-450) /uL Baso # (Auto) 0 (0-100) /uL Sodium 140 (137-145) mmol/L Potassium 3.6 (3.4-5.1) mmol/L Chloride 103 (98-107) mmol/L Carbon Dioxide 24 (22-32) mmol/L BUN 32 H (9-20) mg/dL Creatinine 1.39 H (0.66-1.25) mg/dL Estimated GFR 50 L (>60) mL/min BUN/Creatinine Ratio 23.0 H (6-22) Glucose 125 H (80-110) mg/dL Calcium 9.4 (8.4-10.2) mg/dL Total Bilirubin 0.4 (0.2-1.3) mg/dL AST 33 (17-59) IU/L ALT 22 (<50) IU/L Alkaline Phosphatase 60 (38-126) U/L Total Protein 7.2 (6.3-8.2) g/dL Albumin 4.0 (3.5-5.0) g/dL Globulin 3.2 (1.7-4.1) g/dL Albumin/Globulin Ratio 1.3 (1.0-2.8) Lipase 51 (23-300) U/L Urine RBC (0-5/HPF) Urine WBC (0-5/HPF) Urine Bacteria (None) 03/13/22 Range/Units 12:58 WBC (4.5-11.0) X10^3/uL RBC (4.5-5.9) X10^6/uL Hgb (13.5-17.5) g/dL Hct (41-53) % MCV (80-100) fL MCH (26-34) PG MCHC (30-36) % RDW (11.6-14.8) % Plt Count (150-400) X10^3/uL Neut % (Auto) (50-75) % Lymph % (Auto) (25-40) % Sanders % (Auto) (3-14) % Eos % (Auto) (2-4) % Baso % (Auto) (0-2) % Neut # (Auto) (2428-6209) /uL Lymph # (Auto) (7742-2477) /uL Sanders # (Auto) (0-900) /uL Eos # (Auto) (0-450) /uL Baso # (Auto) (0-100) /uL Sodium (137-145) mmol/L Potassium (3.4-5.1) mmol/L Chloride (98-107) mmol/L Carbon Dioxide (22-32) mmol/L BUN (9-20) mg/dL Creatinine (0.66-1.25) mg/dL Estimated GFR (>60) mL/min BUN/Creatinine Ratio (6-22) Glucose (80-110) mg/dL Calcium (8.4-10.2) mg/dL Total Bilirubin (0.2-1.3) mg/dL AST (17-59) IU/L ALT (<50) IU/L Alkaline Phosphatase (38-126) U/L Total Protein (6.3-8.2) g/dL Albumin (3.5-5.0) g/dL Globulin (1.7-4.1) g/dL Albumin/Globulin Ratio (1.0-2.8) Lipase (23-300) U/L Urine RBC None seen (0-5/HPF) Urine WBC 30-100/hpf H (0-5/HPF) Urine Bacteria Many (>30) H (None) Point of Care Testing Stool Occult Blood Positive Urine Dip Bedside Urine Glucose Negative Bedside Urine Bilirubin - Negative Bedside Urine Ketone - Negative Urine Specific Fertile 1.025 Bedside Urine Occult Blood +/- Bedside Urine pH 6.0 Bedside Urine Protein +/- 15 Bedside Urine Urobilinogen - Negative Bedside Urine Nitrite - Negative Bedside Urine Leukocytes +/- [address] scan - abdomen/pelvis: Radiologist's Impression: PROCEDURE:? CT ABDOMEN PELVIS W CON ? INDICATIONS:? ?gi bleed; diarrhea ? TECHNIQUE:? After the administration of intravenous contrast, axial sections acquired from the lung bases to the pubic symphysis.? Coronal and sagittal reformats were performed.? For radiation dose reduction, the following was used:? automated exposure control, adjustment of mA and/or kV according to patient size.? ? COMPARISON:? None. ? FINDINGS:? Image quality:? Excellent.? ? Lung bases:? Unremarkable. Heart:? No significant findings. Miscellaneous:? Large hiatal hernia containing the entirety of the stomach, within or Beano axial volvulus, typically not an urgent finding. ? ABDOMEN: Liver:? Unremarkable.? ? Gallbladder:? Unremarkable.? ? Biliary ducts:? Unremarkable.? ? Pancreas:? Unremarkable.? ? Spleen:? Unremarkable.? ? Adrenal Glands:? Unremarkable.? ? Kidneys and Ureters:? Unremarkable.? ? ? Stomach and Bowel:? 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 A thickened part of the stomach near the entrance to the abdomen is felt to represent the pyloric region of the stomach.? It is likely a normal appearing gastric pylorus.? Small bowel unremarkable.? Extensive sigmoid diverticulosis without evidence of diverticulitis. Peritoneum:? No abnormal intraperitoneal fluid.? No free air.? ? Ventral Wall: ? No hernias.? Abdominal Nodes:? No retroperitoneal or mesenteric adenopathy by size criteria.? Vessels:? Aorta and inferior vena cava are normal in size.? ? PELVIS: Pelvic Organs:? Prostate implant seeds. Bladder:? Unremarkable.? ? Pelvic Nodes: No enlarged lymph nodes.? Miscellaneous: No hernias are seen. ? ? ? Bones:? Lumbar degenerative change.? No lytic or blastic bony lesions.? No co mpression fractures. ? ? IMPRESSION:? ? 1. 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 However, suggest clinical correlation. ? 2. Extensive sigmoid diverticulosis without evidence of diverticulitis. ? 3. Prostate implant seeds. ? 4. No evidence of metastatic disease.? ? ? Dictated by: Jefferson Adams M.D. on 03/13/2022 at 14:29 ? ? Approved by: Jefferson Adams M.D. on 03/13/2022 at 14:52 ? Chest x-ray: Radiologist's Impression: PROCEDURE:? XR CHEST 2V ? INDICATIONS:? gi bleed ? TECHNIQUE:? 2 views of the chest were acquired.? ? COMPARISON:? [facility], , CHEST 2 VIEW, 04/11/2007, 14:03. ? FINDINGS:? ? Surgical changes and devices:? None.? ? Lungs and pleura:? Lungs are clear.? No pleural effusions or pneumothorax.? ? Mediastinum:? Moderate hiatal hernia.? Mediastinal contours are normal.? Heart size is normal.? ? Bones and chest wall:? No suspicious bony abnormalities.? Soft tissues appear unremarkable.? ? IMPRESSION:? Moderate hiatal hernia.? No acute cardiopulmonary process demonstrated radiographically. ? ? Dictated by: Duke Alfonso M.D. on 03/13/2022 at 14:48 ? ? Approved by: Duke Alfonso M.D. on 03/13/2022 at 14:49 ? MDM Narrative Medical decision making narrative: 86-year-old male with past medical history hyperlipidemia, malignant neoplasm of the prostate presents to the ED with 3 days of nausea, vomiting, diarrhea. Concern for GI bleed versus gastroenteritis versus other intra-abdominal pathology versus other. Will obtain labs, lipase, lactate, UA, CT abdomen pelvis. Guaiac-positive, H&H stable. UA positive for UTI. WBC elevated to 16.5. Per CT read, Large hiatal hernia containing stomach, which has undergone organo-axial volvulus, typically not an emergent finding. Dr. Emery from surgery was consulted, who recommends discharge home with GI follow-up with a GI bleed. Dr. Emery reviewed the CT to ensure no emergent finding. Patient's symptoms could likely be due to gastroenteritis. Discussed findings with patient. Prescribed cefpodoxime for the UTI. Patient agrees to follow-up with GI for the GI bleed. ED return precautions were discussed with patient. Patient verbalized understanding. <Heidy Svetlana Aguero, DO - Last Filed: 03/15/22 19:03> Lab Data Labs: Lab Results 03/13/22 03/13/22 03/13/22 Range/Units 11:16 11:16 11:16 WBC 16.5 H (4.5-11.0) X10^3/uL RBC 4.61 (4.5-5.9) X10^6/uL Hgb 13.9 (13.5-17.5) g/dL Hct 42.7 (41-53) % MCV 92.6 (80-100) fL MCH 30.2 (26-34) PG MCHC 32.7 (30-36) % RDW 14.5 (11.6-14.8) % Plt Count 315 (150-400) X10^3/uL Neut % (Auto) 85.7 H (50-75) % Lymph % (Auto) 5.9 L (25-40) % Sanders % (Auto) 8.2 (3-14) % Eos % (Auto) 0.0 L (2-4) % Baso % (Auto) 0.2 (0-2) % Neut # (Auto) 57522 H (9145-7272) /uL Lymph # (Auto) 1000 L (4273-5121) /uL Sanders # (Auto) 1400 H (0-900) /uL Eos # (Auto) 0 (0-450) /uL Baso # (Auto) 0 (0-100) /uL Sodium 140 (137-145) mmol/L Potassium 3.6 (3.4-5.1) mmol/L Chloride 103 (98-107) mmol/L Carbon Dioxide 24 (22-32) mmol/L BUN 32 H (9-20) mg/dL Creatinine 1.39 H (0.66-1.25) mg/dL Estimated GFR 50 L (>60) mL/min BUN/Creatinine Ratio 23.0 H (6-22) Glucose 125 H (80-110) mg/dL Calcium 9.4 (8.4-10.2) mg/dL Total Bilirubin 0.4 (0.2-1.3) mg/dL AST 33 (17-59) IU/L ALT 22 (<50) IU/L Alkaline Phosphatase 60 (38-126) U/L Total Protein 7.2 (6.3-8.2) g/dL Albumin 4.0 (3.5-5.0) g/dL Globulin 3.2 (1.7-4.1) g/dL Albumin/Globulin Ratio 1.3 (1.0-2.8) Lipase 51 (23-300) U/L Urine RBC (0-5/HPF) Urine WBC (0-5/HPF) Urine Bacteria (None) 03/13/22 Range/Units 12:58 WBC (4.5-11.0) X10^3/uL RBC (4.5-5.9) X10^6/uL Hgb (13.5-17.5) g/dL Hct (41-53) % MCV (80-100) fL MCH (26-34) PG MCHC (30-36) % RDW (11.6-14.8) % Plt Count (150-400) X10^3/uL Neut % (Auto) (50-75) % Lymph % (Auto) (25-40) % Sanders % (Auto) (3-14) % Eos % (Auto) (2-4) % Baso % (Auto) (0-2) % Neut # (Auto) (0202-2740) /uL Lymph # (Auto) (7734-1002) /uL Sanders # (Auto) (0-900) /uL Eos # (Auto) (0-450) /uL Baso # (Auto) (0-100) /uL Sodium (137-145) mmol/L Potassium (3.4-5.1) mmol/L Chloride (98-107) mmol/L Carbon Dioxide (22-32) mmol/L BUN (9-20) mg/dL Creatinine (0.66-1.25) mg/dL Estimated GFR (>60) mL/min BUN/Creatinine Ratio (6-22) Glucose (80-110) mg/dL Calcium (8.4-10.2) mg/dL Total Bilirubin (0.2-1.3) mg/dL AST (17-59) IU/L ALT (<50) IU/L Alkaline Phosphatase (38-126) U/L Total Protein (6.3-8.2) g/dL Albumin (3.5-5.0) g/dL Globulin (1.7-4.1) g/dL Albumin/Globulin Ratio (1.0-2.8) Lipase (23-300) U/L Urine RBC None seen (0-5/HPF) Urine WBC 30-100/hpf H (0-5/HPF) Urine Bacteria Many (>30) H (None) Point of Care Testing Stool Occult Blood Positive Urine Dip Bedside Urine Glucose Negative Bedside Urine Bilirubin - Negative Bedside Urine Ketone - Negative Urine Specific Fertile 1.025 Bedside Urine Occult Blood +/- Bedside Urine pH 6.0 Bedside Urine Protein +/- 15 Bedside Urine Urobilinogen - Negative Bedside Urine Nitrite - Negative Bedside Urine Leukocytes +/- 15 Esterase Discharge Plan Departure Patient Disposition: Home Clinical Impression: Nausea & vomiting, Acute UTI Instructions: DI for Urinary Tract Infection (UTI), DI for Bacterial Gastroenteritis -- Adult, Gastrointestinal Bleeding Activity Restrictions/Additional Instructions: You were evaluated in the ED today for nausea, vomiting and diarrhea. Your urine was positive for a UTI. Your stool exam did show that there was some blood in it, however your hemoglobin and hematocrit are normal. Please follow- up with a GI specialist for the GI bleed. Your symptoms are likely due to gastroenteritis, which is food poisoning. It is common to have 24 hours of nausea and vomiting, followed by a week of diarrhea. Please continue to stay well hydrated. Please return to the ED if you have persistent vomiting, are unable to keep down solids or liquids, you experience chest pain, shortness of breath, copious blood in the stool or blood in the vomit. You are being prescribed an antibiotic for the UTI. Please take it as prescribed. Prescriptions: New cefpodoxime 200 mg tablet 200 mg PO Q12H 10 Days Qty: 20 0RF Rx Instructions: must administer with a meal/food No Action CA PANTOTHENATE/FOLIC ACID/VIT (MULTIVITAMIN) 1 tab PO Q DAY Qty: 0 cholecalciferol (vitamin D3) [Vitamin D3] 1,000 UNIT tablet 1,000 iu PO Q DAY Qty: 0 Fish Oil (#OMEGA-3 FISH OIL) 1,200 mg PO Q DAY Qty: 0 bupropion HCl [Wellbutrin SR] 150 mg tablet sustained-release 12 hr 150 mg PO BID Qty: 180 1RF Calcium Citrate w/Magnesium 2 tab PO BEDTIME Label Comments: Take 2 tabs by mouth daily- 250mg tabs. famotidine [Pepcid] 40 mg tablet 40 mg PO BID Qty: 60 0RF ondansetron 4 mg tablet,disintegrating 4 mg PO Q6H PRN (Reason: nausea and vomiting) Qty: 10 0RF Referrals: Gavino Clay MD [Primary Care Provider] - Visit Report Forms: Patient Portal/API <Heidy Aguero DO - Last Filed: 03/15/22 19:03> Cosign ED Attending Carlieature Attestation: I was immediately available in the department for consultation. Documentation has been reviewed. Case was discussed with myself, also general surgery consultation. Recommendations appreciated.
== END 2022-03-13 16:06 | disposition home or self-care (01) ==
PROVIDERS: Emergency Medicine; Emergency Provider Student in an Organized Health Care Education/Training Program; Family Provider Internal Medicine; PCP Internal Medicine
DX: R11.2 Nausea with vomiting, unspecified (principal); R19.7 Diarrhea, unspecified; N39.0 Urinary tract infection, site not specified; K92.2 Gastrointestinal hemorrhage, unspecified
CPT/HCPCS: 36415; 71046; 74177; 80053; 81003; 81015; 82272; 83690; 85025; 87077; 87086; 87186; 93005; 99284; Q9967

== ENCOUNTER 2022-03-15 10:35 | Emergency (ER) | payer MEDICARE, SELFPAY ==
[2022-03-15 11:02] VITALS: BP 176/95; PULSE 92; RESP 16; TEMP 36.3; O2SAT 98; BMI 21.6
--- NOTE | 2022-03-15 11:37 | ED_ITS ---
HPI - Nausea/Vomiting/Diarrhea General Chief complaint: Nausea/Vomiting/Diarrhea Stated complaint: Vomiting all night Time Seen by Provider: 03/15/22 11:37 Source: patient Mode of arrival: Wheelchair Limitations: no limitations History of Present Illness HPI Narrative: This is a 86-year-old male on Wellbutrin with no other daily medications he has had radiation seeding with hormonal therapy for prostate cancer in the past. Patient presents with complaint of persistent vomiting with dark black emesis and melanotic stools intermittently. He states vomiting has been slowly improving in his sort of intermittent. He denies fevers but has had some chills. He denies chest pain or shortness of breath. No syncope. He is had intermittent abdominal pain he states this has been sort of longstanding and he is had frequent diarrhea in the past, he states certain foods have always seem to cause problems. Patient denies dysuria, urgency or frequency. Patient represents today with persistent symptoms. 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 Patient notes he did have an ulcer in the 1970s. Not currently on any anticoagulation or aspirin. He does not use any NSAIDs regularly. He states the only thing he takes his Wellbutrin. Patient has not had a recent scope or EGD. Tobacco, occasional alcohol, no illicit. Related Data Home Medications Medication Instructions Recorded Confirmed CA PANTOTHENATE/FOLIC ACID/VIT 1 tab PO Q DAY ##0 01/25/11 10/20/20 (MULTIVITAMIN) Fish Oil (#OMEGA-3 FISH OIL) 1,200 mg PO Q DAY ##0 01/17/12 10/20/20 cholecalciferol (vitamin D3) 25 1,000 iu PO Q DAY ##0 01/17/12 10/20/20 mcg (1,000 unit) tablet (Vitamin D3) Calcium Citrate w/Magnesium 2 tab PO BEDTIME 01/01/20 10/20/20 Previous Rx's Medication Instructions Recorded bupropion HCl 150 mg tablet,12 hr 150 mg PO BID #180 tabs 10/27/19 sustained-release (Wellbutrin SR) cefpodoxime 200 mg tablet 200 mg PO Q12H 10 days #20 tabs 03/13/22 famotidine 40 mg tablet (Pepcid) 40 mg PO BID #60 tabs 03/15/22 ondansetron 4 mg disintegrating 4 mg PO Q6H PRN nausea and 03/15/22 tablet vomiting #10 tabs Allergies Allergy/AdvReac Type Severity Reaction Status Date / Time No Known Drug Allergies Allergy Verified 03/15/22 11:02 Review of Systems Review of Systems ROS Unobtainable: All systems reviewed & are unremarkable except as noted in HPI and below Patient History Medical History Cataracts, bilateral Diverticular disease 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 Head injury (01/31/17) History of brachytherapy History of malignant neoplasm of prostate Hyperlipidemia Kidney disease Prostate cancer Surgical History History of left cataract surgery (09/17/12) History of repair of rotator cuff (2007) History of right cataract surgery (10/01/12) History of tonsillectomy Family History Father Family history of alcohol abuse Alzheimer's disease Mother Fam hx-ischem heart disease Heart failure CAD (coronary artery disease) Diabetes mellitus Hypertension Stroke Social History Smoking Status: Never smoker Smoking Status: Never smoker alcohol intake frequency: holidays/special occasions only Substance Use Type: does not use Exam Narrative Exam Narrative: GENERAL: Alert and oriented x three, elderly male in mild distress HEENT: Head normocephalic, atraumatic, EOMI, pupils reactive, face symmetric, moist mucous membranes NECK: Supple, full range of motion CARDIOVASCULAR: Regular rate and rhythm without murmurs, rubs or gallops. RESPIRATORY: Breath sounds equal bilaterally, no wheezes rales or rhonchi. ABDOMEN: Soft, nontender. Normoactive bowel sounds all 4 quadrants. No guarding or rebound, rigidity, no mass. Nondistended. : No CVA tenderness EXTREMITIES: Normal range of motion, no clubbing or edema. Neurovascularly intact NEUROLOGICAL: Cranial nerves II through XII grossly intact. Moving all extremities SKIN: Warm, dry, no petechiae, no rashes or lesions. Initial Vital Signs Initial Vital Signs: Vital Signs Temperature 97.3 F L 03/15/22 11:02 Pulse Rate 92 H 11/17/22 11:02 Respiratory Rate 16 03/15/22 11:02 Blood Pressure 176/95 H 03/15/22 11:02 Pulse Oximetry 98 03/15/22 11:02 Oxygen Delivery Method 03/15/22 11:02 Course Orders Ordered: ED Orders 03/15/22 11:38 XR chest 1V Stat RT Consult Eval and Treat NOW 03/15/22 12:40 Complete Blood Count AUTO DIFF Stat Comprehensive Metabolic Panel Stat Lipase Stat Partial Thromboplastin Time Stat Procalcitonin Stat Prothrombin Time INR Stat Troponin & CK Cardiac Panel Stat 03/15/22 12:55 Blood Culture Stat Lactate (Lactic Acid) Stat 03/15/22 13:49 CT abdomen pelvis w con Stat 03/15/22 14:33 EKG-12 Lead Stat 03/15/22 15:05 COVID19 -Nasal RAPID/Pre-Proc Stat Discontinued Medications Sodium Chloride (Normal Saline 0.9%) 1,000 mls @ 1,000 mls/hr IV BOLUS ONE Stop: 03/15/22 12:37 Last Infusion: 03/15/22 13:44 Dose: 0 mls/hr Documented By: Admin: 03/15/22 11:46 Dose: 1,000 mls/hr Documented By: RAFA Ceftriaxone Sodium 2,000 mg/ (Sodium Chloride) 100 mls @ 200 mls/hr IV NOW ONE Stop: 03/15/22 15:13 Last Infusion: 03/15/22 15:57 Dose: 0 mls/hr Documented By: Admin: 03/15/22 15:22 Dose: 200 mls/hr Documented By: FELICITA Ondansetron HCl (Ondansetron 4 Mg/2 Ml Inj) 4 mg IV NOW ONE Stop: 03/15/22 11:39 Last Admin: 03/15/22 11:45 Dose: 4 mg Documented By: RAFA Pantoprazole Sodium (Pantoprazole 40 Mg Vial) 80 mg IV NOW ONE Stop: 03/15/22 13:05 Last Admin: 03/15/22 13:34 Dose: 80 mg Documented By: RAFA Consultations Consultation #1: Dr. Emery, general surgery aware patient from prior visit 2 days ago she recommends scope with Dr. Fabiola Gloria at [facility] as he is higher risk for KS by having this large hiatal hernia in his chest. If stable she would recommend outpatient follow-up for score if on patient requiring transfusion that she would recommend transferringm as well as PPI if patient is not on one Time: 15:10 Consultation #2: Dr. Patton, general surgery. Discussed patient does sound stable. Is able to speak with Dr. Gloria tomorrow and should be able to help faciliate with out patient follow up. Plan for strict return precautions and PPI Time: 17:36 Vital Signs Vital signs: Vital Signs - 8 hr 03/15/22 11:02 03/15/22 15:03 03/15/22 15:04 Temperature 97.3 F L Pulse Rate 92 H 86 Respiratory Rate 16 18 Blood Pressure 176/95 H 123/68 Pulse Oximetry 98 97 Oxygen Delivery Method Room Air Room Air 03/15/22 15:30 03/15/22 15:30 03/15/22 16:00 Temperature Pulse Rate 86 Respiratory Rate Blood Pressure 136/72 138/73 Pulse Oximetry 97 Oxygen Delivery Method 03/15/22 16:00 03/15/22 17:00 03/15/22 17:00 Temperature Pulse Rate 89 87 Respiratory Rate 16 Blood Pressure 130/81 Pulse Oximetry 96 97 Oxygen Delivery Method Room Air Room Air MDM - Nausea/Vomiting/Diarrhea Lab Data Result diagrams: 03/15/22 12:40 03/15/22 12:40 Labs: Lab Results 03/15/22 03/15/22 03/15/22 Range/Units 12:40 12:40 12:40 WBC 11.4 H (4.5-11.0) X10^3/uL RBC 4.51 (4.5-5.9) X10^6/uL Hgb 13.7 (13.5-17.5) g/dL Hct 41.6 (41-53) % MCV 92.2 (80-100) fL MCH 30.3 (26-34) PG MCHC 32.8 (30-36) % RDW 14.0 (11.6-14.8) % Plt Count 287 (150-400) X10^3/uL Neut % (Auto) 94.1 H (50-75) % Lymph % (Auto) 2.8 L (25-40) % [place] % (Auto) 3.0 (3-14) % Eos % (Auto) 0.0 L (2-4) % Baso % (Auto) 0.1 (0-2) % Neut # (Auto) 19782 H (7569-4470) /uL Lymph # (Auto) 300 L (5706-4543) /uL [place] # (Auto) 300 (0-900) /uL Eos # (Auto) 0 (0-450) /uL Baso # (Auto) 0 (0-100) /uL PT 14.1 H (10.1-12.7) SECONDS INR 1.2 (0.9-1.3) APTT 29 (26-36) SECONDS Sodium 140 (137-145) mmol/L Potassium 3.7 (3.4-5.1) mmol/L Chloride 104 (98-107) mmol/L Carbon Dioxide 27 (22-32) mmol/L BUN 25 H (9-20) mg/dL Creatinine 1.00 (0.66-1.25) mg/dL Estimated GFR > 60 (>60) mL/min BUN/Creatinine Ratio 25.0 H (6-22) Glucose 189 H (80-110) mg/dL Lactate (0.7-2.1) mmol/L Calcium 8.3 L (8.4-10.2) mg/dL Total Bilirubin 0.3 (0.2-1.3) mg/dL AST 27 (17-59) IU/L ALT 21 (<50) IU/L Alkaline Phosphatase 67 (38-126) U/L Total Creatine Kinase (55-170) U/L CK-MB (CK-2) CK-MB (CK-2) Rel Index Troponin I (0.01-0.034) ng/mL Total Protein 7.0 (6.3-8.2) g/dL Albumin 3.9 (3.5-5.0) g/dL Globulin 3.1 (1.7-4.1) g/dL Albumin/Globulin Ratio 1.3 (1.0-2.8) Lipase 72 (23-300) U/L Procalcitonin 0.04 (<0.5) ng/mL SARS-CoV-2 (PCR) (Negative) 03/15/22 03/15/22 03/15/22 Range/Units 12:40 12:55 15:05 WBC (4.5-11.0) X10^3/uL RBC (4.5-5.9) X10^6/uL Hgb (13.5-17.5) g/dL Hct (41-53) % MCV (80-100) fL MCH (26-34) PG MCHC (30-36) % RDW (11.6-14.8) % Plt Count (150-400) X10^3/uL Neut % (Auto) (50-75) % Lymph % (Auto) (25-40) % [place] % (Auto) (3-14) % Eos % (Auto) (2-4) % Baso % (Auto) (0-2) % Neut # (Auto) (8656-7959) /uL Lymph # (Auto) (9435-6343) /uL [place] # (Auto) (0-900) /uL Eos # (Auto) (0-450) /uL Baso # (Auto) (0-100) /uL PT (10.1-12.7) SECONDS INR (0.9-1.3) APTT (26-36) SECONDS Sodium (137-145) mmol/L Potassium (3.4-5.1) mmol/L Chloride (98-107) mmol/L Carbon Dioxide (22-32) mmol/L BUN (9-20) mg/dL Creatinine (0.66-1.25) mg/dL Estimated GFR (>60) mL/min BUN/Creatinine Ratio (6-22) Glucose (80-110) mg/dL Lactate 2.1 (0.7-2.1) mmol/L Calcium (8.4-10.2) mg/dL Total Bilirubin (0.2-1.3) mg/dL AST (17-59) IU/L ALT (<50) IU/L Alkaline Phosphatase (38-126) U/L Total Creatine Kinase 65 (55-170) U/L CK-MB (CK-2) TNP CK-MB (CK-2) Rel Index TNP Troponin I < 0.012 (0.01-0.034) ng/mL Total Protein (6.3-8.2) g/dL Albumin (3.5-5.0) g/dL Globulin (1.7-4.1) g/dL Albumin/Globulin Ratio (1.0-2.8) Lipase (23-300) U/L Procalcitonin (<0.5) ng/mL SARS-CoV-2 (PCR) Negative (Negative) 03/15/22 Range/Units 15:38 WBC (4.5-11.0) X10^3/uL RBC (4.5-5.9) X10^6/uL Hgb (13.5-17.5) g/dL Hct (41-53) % MCV (80-100) fL MCH (26-34) PG MCHC (30-36) % RDW (11.6-14.8) % Plt Count (150-400) X10^3/uL Neut % (Auto) (50-75) % Lymph % (Auto) (25-40) % [place] % (Auto) (3-14) % Eos % (Auto) (2-4) % Baso % (Auto) (0-2) % Neut # (Auto) (6271-0000) /uL Lymph # (Auto) (1270-0203) /uL [place] # (Auto) (0-900) /uL Eos # (Auto) (0-450) /uL Baso # (Auto) (0-100) /uL PT (10.1-12.7) SECONDS INR (0.9-1.3) APTT (26-36) SECONDS Sodium (137-145) mmol/L Potassium (3.4-5.1) mmol/L Chloride (98-107) mmol/L Carbon Dioxide (22-32) mmol/L BUN (9-20) mg/dL Creatinine (0.66-1.25) mg/dL Estimated GFR (>60) mL/min BUN/Creatinine Ratio (6-22) Glucose (80-110) mg/dL Lactate 1.4 (0.7-2.1) mmol/L Calcium (8.4-10.2) mg/dL Total Bilirubin (0.2-1.3) mg/dL AST (17-59) IU/L ALT (<50) IU/L Alkaline Phosphatase (38-126) U/L Total Creatine Kinase (55-170) U/L CK-MB (CK-2) CK-MB (CK-2) Rel Index Troponin I (0.01-0.034) ng/mL Total Protein (6.3-8.2) g/dL Albumin (3.5-5.0) g/dL Globulin (1.7-4.1) g/dL Albumin/Globulin Ratio (1.0-2.8) Lipase (23-300) U/L Procalcitonin (<0.5) ng/mL SARS-CoV-2 (PCR) (Negative) Urine Dip Bedside Urine Glucose Negative Bedside Urine Bilirubin - Negative Bedside Urine Ketone - Negative Urine Specific [place] 1.020 Bedside Urine Occult Blood - Negative Bedside Urine pH 6.0 Bedside Urine Protein - Negative Bedside Urine Urobilinogen - Negative Bedside Urine Nitrite - Negative Bedside Urine Leukocytes - Negative Esterase Imaging Data CT scan - abdomen/pelvis: Radiologist's Impression: Jluis Perea??86??M??1935 ? Allergy/Adv: No Known Drug Allergies (More??) Close Chest X-Ray (Signed) Ashley Winter - 03/15/22 Chest X-Ray (Signed) Duke Alfonso - 03/13/22 Abdomen/Pelvis CT (Signed) Jefferson Adams - 03/13/22 Finger X-Ray (Signed) Ashley Winter - 10/22/20 Finger X-Ray (Signed) Nadeem Sanders - 03/06/18 [place] [address] CT Scan Report Signed Patient: Jluis Perea MR#: [id number] : 1935 Acct:[id number] Age/Sex: 86 / M Date of Service: 03/13/22 Loc: ED Accession Number: [id number] ?? Procedure: CT abdomen pelvis w con Ordering Provider: Doris Alonso P.A-C PROCEDURE:? CT ABDOMEN PELVIS W CON ? INDICATIONS:? ?gi bleed; diarrhea ? TECHNIQUE:? After the administration of intravenous contrast, axial sections acquired from the lung bases to the pubic symphysis.? Coronal and sagittal reformats were performed.? For radiation dose reduction, the following was used:? automated exposure control, adjustment of mA and/or kV according to patient size.? ? COMPARISON:? None. ? FINDINGS:? Image quality:? Excellent.? ? Lung bases:? Unremarkable. Heart:? No significant findings. Miscellaneous:? Large hiatal hernia containing the entirety of the stomach, within or Beano axial volvulus, typically not an urgent finding. ? ABDOMEN: Liver:? Unremarkable.? ? Gallbladder:? Unremarkable.? ? Biliary ducts:? Unremarkable.? ? Pancreas:? Unremarkable.? ? Spleen:? Unremarkable.? ? Adrenal Glands:? Unremarkable.? ? Kidneys and Ureters:? Unremarkable.? ? ? Stomach and Bowel:? 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 A thickened part of the stomach near the entrance to the abdomen is felt to represent the pyloric region of the stomach.? It is likely a normal appearing gastric pylorus.? Small bowel unremarkable.? Extensive sigmoid diverticulosis without evidence of diverticulitis. Peritoneum:? No abnormal intraperitoneal fluid.? No free air.? ? Ventral Wall: ? No hernias.? Abdominal Nodes:? No retroperitoneal or mesenteric adenopathy by size criteria.? Vessels:? Aorta and inferior vena cava are normal in size.? ? PELVIS: Pelvic Organs:? Prostate implant seeds. Bladder:? Unremarkable.? ? Pelvic Nodes: No enlarged lymph nodes.? Miscellaneous: No hernias are seen. ? ? ? Bones:? Lumbar degenerative change.? No lytic or blastic bony lesions.? No compression fractures. ? ? IMPRESSION:? ? 1. 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 However, suggest clinical correlation. ? 2. Extensive sigmoid diverticulosis without evidence of diverticulitis. ? 3. Prostate implant seeds. ? 4. No evidence of metastatic disease.? ? ? Dictated by: Jefferson Adams M.D. on 03/13/2022 at 14:29 ? ? Approved by: Jefferson Adams M.D. on 03/13/2022 at 14:52?? Chest x-ray: Radiologist's Impression: Close Chest X-Ray (Signed) Ashley Winter - 03/15/22 Launch?[address] [address] XRay Report Signed Patient: Jluis Perea MR#: [id number] : 1935 Acct:[id number] Age/Sex: 86 / M Date of Service: 03/15/22 Loc: ED Accession Number: [id number] ?? Procedure: XR chest 1V Ordering Provider: Heidy Aguero D.O. PROCEDURE:? XR CHEST 1V ? INDICATIONS:? suspected sepsis ? TECHNIQUE:? One view of the chest was acquired.? ? COMPARISON:? [facility], CR, XR CHEST 2V, 03/13/2022, 13:16. ? FINDINGS:? ? Surgical changes and devices:? None.? ? Lungs and pleura:? Lungs are clear.? No pleural effusions or pneumothorax.? ? Mediastinum:? Mediastinal contours appear normal.? Heart size is normal.? ? Bones and chest wall:? No suspicious bony lesions.? Overlying soft tissues appear unremarkable.? ? IMPRESSION:? No acute pulmonary process. ? ? Dictated by: Ashley Winter M.D. on 03/15/2022 at 12:17 ? ? Approved by: Ashley Winter M.D. on 03/15/2022 at 12:17?? todays CT abd/pelvis: Radiologist's Impression: [place] [address] CT Scan Report Signed Patient: Jluis Perea MR#: [id number] : 1935 Acct:[id number] Age/Sex: 86 / M Date of Service: 03/15/22 Loc: ED Accession Number: [id number] ?? Procedure: CT abdomen pelvis w con Ordering Provider: Heidy Aguero D.O. PROCEDURE:? CT ABDOMEN PELVIS W CON ? INDICATIONS:? vomiting/melena had vovulus on Ct 2 d ago ? TECHNIQUE:? After the administration of intravenous contrast, axial sections acquired from the lung bases to the pubic symphysis.? Coronal and sagittal reformats were performed.? For radiation dose reduction, the following was used:? automated exposure control, adjustment of mA and/or kV according to patient size.? ? COMPARISON:? [facility], CT, CT ABDOMEN PELVIS W CON, 03/13/2022, 13:15. ? FINDINGS:? Image quality:? Excellent.? ? Lung bases:? The lung bases are clear.? As before, the stomach is herniated into the posterior mediastinum.? No gastric distention or findings to suggest strangulation.? There are small bilateral low-density pleural effusions which are new when compared with the prior study. Heart:? No significant findings. ? ABDOMEN: Liver:? A probable hepatic hemangioma is present within hepatic segment .? The liver is otherwise unremarkable. Gallbladder:? Unremarkable.? ? Biliary ducts:? Unremarkable.? ? Pancreas:? Unremarkable.? ? Spleen:? Unremarkable.? ? Adrenal Glands:? No right adrenal nodules.? There is thickening of the left adrenal gland, as before. Kidneys and Ureters:? Unremarkable.? ? ? Stomach and Bowel:? The entire stomach is herniated into the posterior thorax, as before. ?The small bowel demonstrates normal caliber and wall thickness. The appendix is thin walled and gas filled. There are extensive sigmoid diverticula. No evidence for diverticulitis. Peritoneum:? No abnormal intraperitoneal fluid.? No free air.? ? Ventral Wall: ? No hernias.? Abdominal Nodes:? No retroperitoneal or mesenteric adenopathy by size criteria.? Vessels:? Aorta and inferior vena cava are normal in size. There are scattered atheromatous calcifications throughout the aorta and iliac arteries bilaterally. ? ? PELVIS: Pelvic Organs:? Unremarkable.? ? Bladder:? Unremarkable.? ? Pelvic Nodes: No enlarged lymph nodes.? Miscellaneous: No hernias are seen. ? ? ? Bones:? Unremarkable.? IMPRESSION:? ? 1. Persistent herniation of the stomach into the posterior thorax.? No findings to suggest gastric outlet obstruction or strangulation. ? 2. New small low-density bilateral pleural effusions. ? 3. Normal appendix.? Diverticulosis.? No acute diverticulitis.? ? ? Dictated by: Sherlyn Rice M.D. on 03/15/2022 at 14:21 ? ? Approved by: Sherlyn Rice M.D. on 03/15/2022 at 14:30?? ECG Data Attestation: I personally reviewed and interpreted this ECG as follows: Interpretation: Sinus rhythm rate 86 MA 148 QRS [address]TC [address] No acute ST changes. MDM Narrative Medical decision making narrative: This is an 86-year-old male who represents with persistent vomiting he describes blackish emesis with melanotic stools intermittently. Patient states vomiting is intermittent as well sometimes he is able to eat sometimes not he was seen here 2 days ago found to have an organoaxial volvulus, patient was able to tolerate orals, he was found have a possible UTI and was started on oral antibiotics and discharged home. Patient represents similar symptoms no fevers, he is currently asymptomatic he states he had only a very small amount less than a quarter cup of emesis this morning. Hemoglobin is stable, vital signs are stable with no tachycardia or hypotension. Patient is not currently on a PPI was given Protonix and a dose of IV antibiotic to cover as his urine culture is positive. Patient urine culture shows sensitivity antibiotics discharged on 2 days ago. Discussed with our general surgeon who recommends follow-up with Dr. Gloria, general surgery [facility] as patient's hiatal hernia makes him higher risk for EGD. If unstable she would recommend transfer and transfusion if needed for low hemoglobin. Dr. Emery also recommends PPI. If stable she would recommend follow-up with Dr. Gloria for outpatient EGD. Spoke with general surgery at [facility], they agree with plan for follow-up outpatient for, continue with PPI daily and strict return precautions. Discussed with patient and family they feel comfortable with this plan. Discharge Plan Departure Patient Disposition: Home Clinical Impression: Organoaxial gastric volvulus, Complaint of melena Instructions: DI for Vomiting -- Adult Activity Restrictions/Additional Instructions: Follow up with Dr. Gloria through [facility], please call 1st thing in the morning to set up follow-up. I spoke with one of the surgeons through [facility] they will update Dr. Gloria to help facilitate follow up. Our general surgeon has recommended you follow-up with her for EGD to evaluate for upper GI bleeding, gastritis or ulcer as well as her hiatal hernia and organoaxial volvulus. You can continue your antibiotic until gone. Please take Pepcid 40 mg twice daily. You may take Zofran 1 tablet every 6 hours as needed. Prescription sent to [facility] in [place]. Please return for fevers, persistent vomiting, new bright red bleeding in your stool or vomit, new chest pain, shortness of breath, lightheadedness or passing out, new abdominal pain, inability to tolerate orals or other new or concerning changes. Prescriptions: New famotidine [Pepcid] 40 mg tablet 40 mg PO BID Qty: 60 0RF ondansetron 4 mg tablet,disintegrating 4 mg PO Q6H PRN (Reason: nausea and vomiting) Qty: 10 0RF No Action CA PANTOTHENATE/FOLIC ACID/VIT (MULTIVITAMIN) 1 tab PO Q DAY Qty: 0 cholecalciferol (vitamin D3) [Vitamin D3] 1,000 UNIT tablet 1,000 iu PO Q DAY Qty: 0 Fish Oil (#OMEGA-3 FISH OIL) 1,200 mg PO Q DAY Qty: 0 bupropion HCl [Wellbutrin SR] 150 mg tablet sustained-release 12 hr 150 mg PO BID Qty: 180 1RF Calcium Citrate w/Magnesium 2 tab PO BEDTIME Label Comments: Take 2 tabs by mouth daily- 250mg tabs. cefpodoxime 200 mg tablet 200 mg PO Q12H 10 Days Qty: 20 0RF Rx Instructions: must administer with a meal/food Referrals: Gavino Clay MD [Primary Care Provider] - Fabiola Gloria MD [Non-Staff] - Visit Report Forms: Patient Portal/API
--- NOTE | 2022-03-15 11:38 | DI.RAD.S_ITS ---
PROCEDURE: XR CHEST 1V INDICATIONS: suspected sepsis TECHNIQUE: One view of the chest was acquired. COMPARISON: [facility], CR, XR CHEST 2V, 03/13/2022, 13:16. FINDINGS: Surgical changes and devices: None. Lungs and pleura: Lungs are clear. No pleural effusions or pneumothorax. Mediastinum: Mediastinal contours appear normal. Heart size is normal. Bones and chest wall: No suspicious bony lesions. Overlying soft tissues appear unremarkable. IMPRESSION: No acute pulmonary process. Dictated by: Ashley Winter M.D. on 03/15/2022 at 12:17 Approved by: Ashley Winter M.D. on 03/15/2022 at 12:17
[2022-03-15] MEDS: ONDANSETRON 4 MG/2 ML INJ IV (11:45)
[2022-03-15] MEDS: SODIUM CHLORIDE 0.9% 1,000 ML 1000 ML IV (11:46)
[2022-03-15 13:21] LABS: Add Manual Diff / Slide Review NO; Basophils Absolute Auto 0 /uL (0-100); Basophils Percent Auto 0.1 % (0-2); Eosinophils Absolute Auto 0 /uL (0-450); Hematocrit 41.6 % (41-53); Hemoglobin 13.7 g/dL (13.5-17.5); Lymphocytes Absolute Auto 300 /uL (1100-4500); Lymphocytes Percent Auto 2.8 % (25-40); Mean Corpuscular HGB Conc 32.8 % (30-36); Mean Corpuscular Hemoglobin 30.3 PG (26-34); Mean Corpuscular Volume 92.2 fL (80-100); Monocytes Absolute Auto 300 /uL (0-900); Neutrophils Absolute Auto 10800 /uL (1500-7000); Neutrophils Percent Auto 94.1 % (50-75); Platelet Count 287 X10^3/uL (150-400); Red Blood Cell Count 4.51 X10^6/uL (4.5-5.9); White Blood Cell Count 11.4 X10^3/uL (4.5-11.0)
[2022-03-15 13:25] LABS: INR 1.2 (0.9-1.3); Prothrombin Time 14.1 SECONDS (10.1-12.7)
[2022-03-15 13:28] LABS: PTT Partial Thromboplastin Tim 29 SECONDS (26-36)
[2022-03-15 13:30] LABS: Lactate (Lactic Acid) 2.1 mmol/L (0.7-2.1)
[2022-03-15 13:31] LABS: Alanine Aminotransferase 21 IU/L (<50); Albumin 3.9 g/dL (3.5-5.0); Albumin Globulin Ratio 1.3 (1.0-2.8); Alkaline Phosphatase 67 U/L (38-126); Aspartate Aminotransferase 27 IU/L (17-59); Bilirubin Total 0.3 mg/dL (0.2-1.3); Blood Urea Nitrogen 25 mg/dL (9-20); Calcium 8.3 mg/dL (8.4-10.2); Carbon Dioxide 27 mmol/L (22-32); Chloride 104 mmol/L (98-107); Creatine Kinase 65 U/L (55-170); Estimated Glomerular Filt Rate > 60 mL/min (>60); Globulin 3.1 g/dL (1.7-4.1); Glucose 189 mg/dL (80-110); HEMOLYSIS < 15 (0-50); Lipase 72 U/L (23-300); Potassium 3.7 mmol/L (3.4-5.1); Sodium 140 mmol/L (137-145)
[2022-03-15] MEDS: PANTOPRAZOLE 40 MG VIAL 80 MG IV (13:34)
[2022-03-15 13:43] LABS: Troponin I < 0.012 ng/mL (0.01-0.034)
[2022-03-15 13:48] LABS: Procalcitonin 0.04 ng/mL (<0.5)
--- NOTE | 2022-03-15 13:49 | DI.CT.S_ITS ---
PROCEDURE: CT ABDOMEN PELVIS W CON INDICATIONS: vomiting/melena had vovulus on Ct 2 d ago TECHNIQUE: After the administration of intravenous contrast, axial sections acquired from the lung bases to the pubic symphysis. Coronal and sagittal reformats were performed. For radiation dose reduction, the following was used: automated exposure control, adjustment of mA and/or kV according to patient size. COMPARISON: [facility], CT, CT ABDOMEN PELVIS W CON, 03/13/2022, 13:15. FINDINGS: Image quality: Excellent. Lung bases: The lung bases are clear. 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 No gastric distention or findings to suggest strangulation. There are small bilateral low-density pleural effusions which are new when compared with the prior study. Heart: No significant findings. ABDOMEN: Liver: A probable hepatic hemangioma is present within hepatic segment . The liver is otherwise unremarkable. Gallbladder: Unremarkable. Biliary ducts: Unremarkable. Pancreas: Unremarkable. Spleen: Unremarkable. Adrenal Glands: No right adrenal nodules. There is thickening of the left adrenal gland, as before. Kidneys and Ureters: Unremarkable. 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 The small bowel demonstrates normal caliber and wall thickness. The appendix is thin walled and gas filled. There are extensive sigmoid diverticula. No evidence for diverticulitis. Peritoneum: No abnormal intraperitoneal fluid. No free air. Ventral Wall: No hernias. Abdominal Nodes: No retroperitoneal or mesenteric adenopathy by size criteria. Vessels: Aorta and inferior vena cava are normal in size. There are scattered atheromatous calcifications throughout the aorta and iliac arteries bilaterally. PELVIS: Pelvic Organs: Unremarkable. Bladder: Unremarkable. Pelvic Nodes: No enlarged lymph nodes. Miscellaneous: No hernias are seen. Bones: Unremarkable. IMPRESSION: 1. 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 No findings to suggest gastric outlet obstruction or strangulation. 2. New small low-density bilateral pleural effusions. 3. Normal appendix. Diverticulosis. No acute diverticulitis. Dictated by: Sherlyn Rice M.D. on 03/15/2022 at 14:21 Approved by: Sherlyn Rice M.D. on 03/15/2022 at 14:30
[2022-03-15 15:03] VITALS: BP 123/68
[2022-03-15 15:04] VITALS: PULSE 86; RESP 18; O2SAT 97
[2022-03-15 15:11] LABS: Reflexed Lactate in 2 Hours Y
[2022-03-15] MEDS: cefTRIAXone 2,000 MG in SODIUM CHLORIDE 0.9% 100 ML 200 MG IV (15:22)
[2022-03-15 15:30] VITALS: BP 136/72; PULSE 86; O2SAT 97
[2022-03-15 15:42] LABS: COVID19 -Nasal RAPID Negative (Negative)
[2022-03-15 16:00] VITALS: BP 138/73; PULSE 89; O2SAT 96
[2022-03-15 16:28] LABS: Lactate 2HR (Lactic Acid Rflx) 1.4 mmol/L (0.7-2.1)
[2022-03-15 17:00] VITALS: BP 130/81; PULSE 87; RESP 16; O2SAT 97
== END 2022-03-15 17:44 | disposition home or self-care (01) ==
PROVIDERS: Emergency Provider Emergency Medicine; Family Provider Internal Medicine; PCP Internal Medicine
DX: K31.89 Other diseases of stomach and duodenum (principal); K92.1 Melena; Z20.822 Contact with and (suspected) exposure to COVID-19
CPT/HCPCS: 36415; 71045; 74177; 80053; 81003; 82550; 83605; 83690; 84145; 84484; 85025; 85610; 85730; 87040; 87635; 93005; 93010; 96361; 96365; 96375; 99284; 99285; C9803; C9113; J0696; J2405; Q9967

== ENCOUNTER 2022-08-09 14:08 | Emergency (ER) | payer MEDICARE, SELFPAY ==
[2022-08-09 14:17] VITALS: BP 173/75; PULSE 59; RESP 16; TEMP 36.6; O2SAT 95; BMI 21.2
[2022-08-09 14:31] VITALS: BP 136/65; PULSE 82; O2SAT 98
--- NOTE | 2022-08-09 14:34 | ED.GIBLEED ---
HPI - GI Bleed General Chief complaint: GI Bleed Stated complaint: Vomiting blood Time Seen by Provider: 08/09/22 14:34 Source: patient Mode of arrival: Ambulatory History of Present Illness HPI Narrative: 86-year-old male nonsmoker with history of a gastric volvulus, prior GI bleed presents with his in the chief complaint of nausea and vomiting on Saturday there is some report that it appeared dark in nature and he did have some coffee-ground emesis prior to hospitalization in February. He is had no episodes since and denies any dizziness, weakness or lightheadedness. He denies any chest pain or shortness of breath. He denies any abdominal pain, diarrhea or dark and tarry stools. He does not take blood thinners. He denies any change in medications. He presents today because he was attempting to see his primary care doctor and at the note of his complaint they directed him to the emergency department. As part of his hospitalization for a GI bleed in the fall he was referred to outpatient GI who recommended endoscopy which he canceled. Related Data Home Medications Medication Instructions Recorded Confirmed CA PANTOTHENATE/FOLIC ACID/VIT 1 tab PO Q DAY ##0 01/25/11 10/20/20 (MULTIVITAMIN) Fish Oil (#OMEGA-3 FISH OIL) 1,200 mg PO Q DAY ##0 01/17/12 10/20/20 cholecalciferol (vitamin D3) 25 1,000 iu PO Q DAY ##0 01/17/12 10/20/20 mcg (1,000 unit) tablet (Vitamin D3) Calcium Citrate w/Magnesium 2 tab PO BEDTIME 01/01/20 10/20/20 Previous Rx's Medication Instructions Recorded bupropion HCl 150 mg tablet,12 hr 150 mg PO BID #180 tabs 10/27/19 sustained-release (Wellbutrin SR) famotidine 40 mg tablet (Pepcid) 40 mg PO BID #60 tabs 03/15/22 ondansetron 4 mg disintegrating 4 mg PO Q6H PRN nausea and 03/15/22 tablet vomiting #10 tabs ondansetron 4 mg disintegrating 4 mg PO TID-QID PRN nausea and 08/09/22 tablet vomiting #10 tabs pantoprazole 40 mg tablet,delayed 40 mg PO DAILY #30 tabs 04/13/23 release (Protonix) Allergies Allergy/AdvReac Type Severity Reaction Status Date / Time No Known Drug Allergies Allergy Verified 08/09/22 14:17 Review of Systems Review of Systems Narrative: GENERAL: Denies chills, fatigue, malaise, fever, sweats. HEENT: Denies sinus pain, ear pain, sore throat, difficulty swallowing, dizziness. RESPIRATORY: Denies dyspnea, cough, wheezing, hemoptysis, sputum. CARDIOVASCULAR: Denies chest pain, palpitations, orthopnea, edema, GASTROINTESTINAL: See HPI : Denies dysuria, frequency, incontinence, hematuria, urinary retention. MUSCULOSKELETAL: denies weakness, joint pain, or bony pain SKIN: Denies rash, skin lesions, or other NEUROLOGIC: Denies weakness, headache, numbness, change in speech, confusion, seizures, incoordination. PSYCHIATRIC: No concerning psychosocial issues. 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 Head injury (01/31/17) History of brachytherapy History of malignant neoplasm of prostate Hyperlipidemia Kidney disease Prostate cancer Surgical History History of left cataract surgery (09/17/12) History of repair of rotator cuff (2007) History of right cataract surgery (10/01/12) History of tonsillectomy Family History Father Family history of alcohol abuse Alzheimer's disease Mother Fam hx-ischem heart disease Heart failure CAD (coronary artery disease) Diabetes mellitus Hypertension Stroke Social History Smoking Status: Never smoker Smoking Status: Never smoker alcohol intake frequency: holidays/special occasions only Substance Use Type: does not use Exam Narrative Exam Narrative: GENERAL: [86] year old patient appears stated age. Well-developed patient, in mild distress. HEAD: Atraumatic. Normocephalic. EYES: Pupils equal round and reactive. Extraocular motions intact. No scleral icterus. No injection or drainage. ENT: Nose without bleeding, purulent drainage. Throat without erythema, tonsillar hypertrophy or exudate. Airway patent. NECK: Trachea midline. Non tender CARDIOVASCULAR: Regular rate and rhythm without murmurs, gallops, or rubs. RESPIRATORY: Clear to auscultation. Breath sounds equal bilaterally. No wheezes, rales, or rhonchi. GASTROINTESTINAL: Abdomen soft, non-tender, nondistended. EXTREMITIES: No edema or joint tenderness. BACK: Nontender without deformity or crepitance. No flank tenderness. NEURO: AOx3. SKIN: No rash or erythema of visible areas Initial Vital Signs Initial Vital Signs: Vital Signs Temperature 97.9 F 08/09/22 14:17 Pulse Rate 59 L 08/09/22 14:17 Respiratory Rate 16 08/09/22 14:17 Blood Pressure 173/75 H 08/09/22 14:17 Pulse Oximetry 95 08/09/22 14:17 Oxygen Delivery Method Room Air 08/09/22 14:17 Course Orders Ordered: ED Orders 08/09/22 14:20 EKG-12 Lead Stat 08/09/22 14:28 Complete Blood Count AUTO DIFF Stat Comprehensive Metabolic Panel Stat PTT Partial Thromboplastin Jeremy Stat Prothrombin Time INR Stat Type and Screen Stat Discontinued Medications Sodium Chloride (Normal Saline 0.9%) 500 mls @ 1,000 mls/hr IV BOLUS ONE Stop: 08/09/22 15:28 Last Infusion: 08/09/22 16:05 Dose: 0 mls/hr Documented By: Admin: 08/09/22 15:06 Dose: 1,000 mls/hr Documented By: AT Ondansetron HCl (Ondansetron 4 Mg/2 Ml Inj) 4 mg IV NOW PRN PRN Reason: Nausea And Vomiting Ondansetron HCl (Ondansetron 4 Mg Odt) 4 mg SL NOW PRN PRN Reason: Nausea And Vomiting Pantoprazole Sodium (Pantoprazole 40 Mg Vial) 80 mg IV NOW ONE Stop: 08/09/22 14:21 Last Admin: 08/09/22 15:06 Dose: 80 mg Documented By: AT Vital Signs Vital signs: Vital Signs - 8 hr 08/09/22 14:17 08/09/22 14:31 08/09/22 15:00 Temperature 97.9 F Pulse Rate 59 L 82 Respiratory Rate 16 Blood Pressure 173/75 H 136/65 134/67 Pulse Oximetry 95 98 Oxygen Delivery Method Room Air Room Air 08/09/22 15:00 08/09/22 15:30 08/09/22 15:30 Temperature Pulse Rate 80 71 Respiratory Rate Blood Pressure 121/65 Pulse Oximetry 98 97 Oxygen Delivery Method Room Air MDM - GI Bleed Lab Data 08/09/22 14:28 08/09/22 14:28 Labs: Lab Results 08/09/22 08/09/22 08/09/22 Range/Units 14:28 14:28 14:28 WBC 7.6 (4.5-11.0) X10^3/uL RBC 4.18 L (4.5-5.9) X10^6/uL Hgb 11.6 L (13.5-17.5) g/dL Hct 35.7 L (41-53) % MCV 85.5 (80-100) fL MCH 27.9 (26-34) PG MCHC 32.6 (30-36) % RDW 15.4 H (11.6-14.8) % Plt Count 344 (150-400) X10^3/uL Neut % (Auto) 75.0 (50-75) % Lymph % (Auto) 18.4 L (25-40) % [place] % (Auto) 5.8 (3-14) % Eos % (Auto) 0.3 L (2-4) % Baso % (Auto) 0.5 (0-2) % Neut # (Auto) 5700 (8052-9582) /uL Lymph # (Auto) 1400 (7666-6670) /uL [place] # (Auto) 400 (0-900) /uL Eos # (Auto) 0 (0-450) /uL Baso # (Auto) 0 (0-100) /uL PT 13.9 H (10.1-12.7) SECONDS INR 1.2 (0.9-1.3) APTT 32 (26-36) SECONDS Sodium 138 (137-145) mmol/L Potassium 3.8 (3.4-5.1) mmol/L Chloride 105 (98-107) mmol/L Carbon Dioxide 26 (22-32) mmol/L BUN 28 H (9-20) mg/dL Creatinine 1.38 H (0.66-1.25) mg/dL Estimated GFR 50 L (>60) mL/min BUN/Creatinine Ratio 20.3 (6-22) Glucose 183 H (80-110) mg/dL Calcium 8.7 (8.4-10.2) mg/dL Total Bilirubin 0.3 (0.2-1.3) mg/dL AST 31 (17-59) IU/L ALT 24 (<50) IU/L Alkaline Phosphatase 61 (38-126) U/L Total Protein 7.1 (6.3-8.2) g/dL Albumin 4.0 (3.5-5.0) g/dL Globulin 3.1 (1.7-4.1) g/dL Albumin/Globulin Ratio 1.3 (1.0-2.8) Blood Type Antibody Screen 08/09/22 Range/Units 14:28 WBC (4.5-11.0) X10^3/uL RBC (4.5-5.9) X10^6/uL Hgb (13.5-17.5) g/dL Hct (41-53) % MCV (80-100) fL MCH (26-34) PG MCHC (30-36) % RDW (11.6-14.8) % Plt Count (150-400) X10^3/uL Neut % (Auto) (50-75) % Lymph % (Auto) (25-40) % [place] % (Auto) (3-14) % Eos % (Auto) (2-4) % Baso % (Auto) (0-2) % Neut # (Auto) (5940-8683) /uL Lymph # (Auto) (7372-6569) /uL [place] # (Auto) (0-900) /uL Eos # (Auto) (0-450) /uL Baso # (Auto) (0-100) /uL PT (10.1-12.7) SECONDS INR (0.9-1.3) APTT (26-36) SECONDS Sodium (137-145) mmol/L Potassium (3.4-5.1) mmol/L Chloride (98-107) mmol/L Carbon Dioxide (22-32) mmol/L BUN (9-20) mg/dL Creatinine (0.66-1.25) mg/dL Estimated GFR (>60) mL/min BUN/Creatinine Ratio (6-22) Glucose (80-110) mg/dL Calcium (8.4-10.2) mg/dL Total Bilirubin (0.2-1.3) mg/dL AST (17-59) IU/L ALT (<50) IU/L Alkaline Phosphatase (38-126) U/L Total Protein (6.3-8.2) g/dL Albumin (3.5-5.0) g/dL Globulin (1.7-4.1) g/dL Albumin/Globulin Ratio (1.0-2.8) Blood Type O Positive Antibody Screen Negative MDM Narrative Medical decision making narrative: CC: 86-year-old male with worth of dark emesis 4 days ago Complicating co-morbidities: Age, prior GI bleed Data collected from: Patient Medical records reviewed: Prior notes reviewed in our EMR Differential considered, but not limited to: Upper GI bleed due to ulcer versus other Exam documented above, pertinent findings include: [place] skin, abdomen is soft and nontender, heart rate regular, lungs clear and nonlabored Lab Test results independently reviewed as above. Pertinent findings: No leukocytosis or noted anemia. Independently reviewed EKG as above Treatments: Mild fluids, Protonix Re-evaluations: Patient remains at baseline in his asymptomatic for duration Discussion: Patient had dark emesis a few days ago in the absence of other symptoms or ongoing episodes. He denies any dizziness, weakness or lightheadedness, he has no pain, no more vomiting, no change in his stool caliber. His vital signs are stable, H&H is stable other labs unremarkable. He is given Protonix here and strongly encouraged to follow closely with the physicians that he had been referred to after his episode in 2021, he and understand the importance of close follow-up in the need for endoscopy but understand there is no indication for hospitalization or emergent intervention at this time. He understands return precautions such as recurrence of vomiting particularly with coffee-ground emesis or dark stools. He understands that waiting multiple days puts him at risk and is encouraged to come sooner in the future. Disposition: see below, along with detailed discharge instructions that have been reviewed with patient as well as indications for ED re-evaluation and additional outpatient follow up Discharge Plan Departure Patient Disposition: Home Clinical Impression: GI bleed Instructions: Gastrointestinal Bleeding Activity Restrictions/Additional Instructions: *You have been diagnosed with [episode of likely GI bleeding, thankfully your history and physical exam are reassuring labs are unremarkable.] *What to do: *Please continue to take your regular medications as directed. [ x] New medication prescriptions sent to your pharmacy: [ [facility]] [ ] New medication written as a paper prescription [ ] No new medications given *Please follow up with your primary care provider in 2-3 days, call for an appointment. Let them know you were seen in the Emergency Department and that we ask that you be seen in follow up. We will electronically transmit a record of today's note if your PCP is in our system * as we discussed it will be very important to follow-up with Dr. Gloria to pursue upper endoscopy to evaluate the potential cause of these symptoms *If you do not have a primary care provider please contact the [facility] Resource line at [phone]. They will ask some questions about your medical history and help get you set up with a doctor in the community. *Return to Emergency Department if you should have any new, worsening or concerning symptoms, such as [fever greater than 101 F, shaking chills, worsening pain, persistent vomiting or other bothersome symptoms] Prescriptions: New pantoprazole [Protonix] 40 mg tablet,delayed release (DR/EC) 40 mg PO DAILY Qty: 30 0RF ondansetron 4 mg tablet,disintegrating 4 mg PO TID-QID PRN (Reason: nausea and vomiting) Qty: 10 0RF No Action CA PANTOTHENATE/FOLIC ACID/VIT (MULTIVITAMIN) 1 tab PO Q DAY Qty: 0 cholecalciferol (vitamin D3) [Vitamin D3] 1,000 UNIT tablet 1,000 iu PO Q DAY Qty: 0 Fish Oil (#OMEGA-3 FISH OIL) 1,200 mg PO Q DAY Qty: 0 bupropion HCl [Wellbutrin SR] 150 mg tablet sustained-release 12 hr 150 mg PO BID Qty: 180 1RF Calcium Citrate w/Magnesium 2 tab PO BEDTIME Patient Comments: Take 2 tabs by mouth daily- 250mg tabs. famotidine [Pepcid] 40 mg tablet 40 mg PO BID Qty: 60 0RF ondansetron 4 mg tablet,disintegrating 4 mg PO Q6H PRN (Reason: nausea and vomiting) Qty: 10 0RF Referrals: Miscellaneous,Doctor, MD [Primary Care Provider] - Stand Alone Forms: Patient Portal/API
[2022-08-09 14:41] LABS: Add Manual Diff / Slide Review NO; Basophils Absolute Auto 0 /uL (0-100); Basophils Percent Auto 0.5 % (0-2); Eosinophils Absolute Auto 0 /uL (0-450); Eosinophils Percent Auto 0.3 % (2-4); Hematocrit 35.7 % (41-53); Hemoglobin 11.6 g/dL (13.5-17.5); Lymphocytes Absolute Auto 1400 /uL (1100-4500); Lymphocytes Percent Auto 18.4 % (25-40); Mean Corpuscular HGB Conc 32.6 % (30-36); Mean Corpuscular Hemoglobin 27.9 PG (26-34); Mean Corpuscular Volume 85.5 fL (80-100); Monocytes Absolute Auto 400 /uL (0-900); Monocytes Percent Auto 5.8 % (3-14); Neutrophils Absolute Auto 5700 /uL (1500-7000); Platelet Count 344 X10^3/uL (150-400); Red Blood Cell Count 4.18 X10^6/uL (4.5-5.9); Red Cell Distribution Width 15.4 % (11.6-14.8); White Blood Cell Count 7.6 X10^3/uL (4.5-11.0)
--- NOTE | 2022-08-09 14:42 | PC.NURSE ---
Pt brought sample of vomit from 08/07, brown with formed particles. Pt brought sample of stool from 08/09, small smear of brown on toilet paper. Pt reports 12 hours of vomiting on Saturday 2300 to Saturday 1130, took a Zofran at 0230 that morning without resolve then another at 830. Pt describes the vomit as coffee gorund and bile. Pt reports he has felt fine since, denies symptoms today. States he had a scheduled endoscopy and colonoscopy in April but did not go because he felt fine, education provided on importance of procedure r/t past symptoms. Pt reports he was recently diagnosed with UTI and being treated with antibiotics, type was changed on Saturday r/t culture results.
[2022-08-09 14:48] LABS: INR 1.2 (0.9-1.3); Prothrombin Time 13.9 SECONDS (10.1-12.7)
[2022-08-09 14:50] LABS: PTT Partial Thromboplastin Tim 32 SECONDS (26-36)
[2022-08-09 14:53] LABS: Alanine Aminotransferase 24 IU/L (<50); Albumin Globulin Ratio 1.3 (1.0-2.8); Alkaline Phosphatase 61 U/L (38-126); Aspartate Aminotransferase 31 IU/L (17-59); BUN Creatinine Ratio 20.3 (6-22); Bilirubin Total 0.3 mg/dL (0.2-1.3); Blood Urea Nitrogen 28 mg/dL (9-20); Calcium 8.7 mg/dL (8.4-10.2); Carbon Dioxide 26 mmol/L (22-32); Chloride 105 mmol/L (98-107); Estimated Glomerular Filt Rate 50 mL/min (>60); Globulin 3.1 g/dL (1.7-4.1); Glucose 183 mg/dL (80-110); HEMOLYSIS 15 (0-50); Potassium 3.8 mmol/L (3.4-5.1); Sodium 138 mmol/L (137-145); Total Protein 7.1 g/dL (6.3-8.2)
[2022-08-09 15:00] VITALS: BP 134/67; PULSE 80; O2SAT 98
[2022-08-09] MEDS: SODIUM CHLORIDE 0.9% 500 ML 1000 ML IV (15:06)
[2022-08-09] MEDS: PANTOPRAZOLE 40 MG VIAL 80 MG IV (15:06)
[2022-08-09 15:30] VITALS: BP 121/65; PULSE 71; O2SAT 97
== END 2022-08-09 16:05 | disposition home or self-care (01) ==
PROVIDERS: Emergency Provider Emergency Medicine; Family Provider Internal Medicine
DX: K92.2 Gastrointestinal hemorrhage, unspecified (principal); R11.2 Nausea with vomiting, unspecified; R03.0 Elevated blood-pressure reading, without diagnosis of hypertension; R94.31 Abnormal electrocardiogram [ECG] [EKG]
CPT/HCPCS: 36415; 80053; 85025; 85610; 85730; 86850; 86900; 86901; 93005; 93010; 96374; 99284; C9113

== ENCOUNTER → 2025-03-31 13:14 | Outpatient (CLI) | payer MEDICARE, SELFPAY ==
[2025-03-31 13:50] LABS: Add Manual Diff / Slide Review NO; Hematocrit 41.9 % (41-53); Hemoglobin 13.8 g/dL (13.5-17.5); Lymphocytes Absolute Auto 900 /uL (1100-4500); Mean Corpuscular HGB Conc 33.0 % (30-36); Mean Corpuscular Hemoglobin 29.6 PG (26-34); Mean Corpuscular Volume 89.7 fL (80-100); Platelet Count 323 X10^3/uL (150-400)
[2025-03-31 14:03] LABS: HEMOLYSIS < 15 (0-50); Iron 74 ug/dL (49-181)
[2025-03-31 14:05] LABS: Alanine Aminotransferase 14 IU/L (<50); Albumin 4.5 g/dL (3.5-5.0); Albumin Globulin Ratio 1.5 (1.0-2.8); Alkaline Phosphatase 74 U/L (38-126); Blood Urea Nitrogen 26 mg/dL (9-20); Calcium 9.3 mg/dL (8.4-10.2); Carbon Dioxide 23 mmol/L (22-32); Chloride 105 mmol/L (98-107); Estimated Glomerular Filt Rate 60 mL/min (>60); Globulin 3.1 g/dL (1.7-4.1); Glucose 99 mg/dL (70-99); HEMOLYSIS 25 (0-50); Potassium 4.5 mmol/L (3.4-5.1); Sodium 140 mmol/L (137-145); Total Protein 7.6 g/dL (6.3-8.2)
[2025-03-31 14:14] LABS: Percent Iron Saturation 22 % (20-50); Total Iron Binding Capacity 341 ug/dL (261-462); Transferrin 302 mg/dL (206-381)
== END ==
PROVIDERS: PCP Family Medicine; Referring Provider Family Medicine; Visit Provider Family Medicine
DX: K29.50 Unspecified chronic gastritis without bleeding (principal); K22.4 Dyskinesia of esophagus; K44.9 Diaphragmatic hernia without obstruction or gangrene; K21.9 Gastro-esophageal reflux disease without esophagitis; N18.9 Chronic kidney disease, unspecified; R73.03 Prediabetes; D50.9 Iron deficiency anemia, unspecified; Z68.21 Body mass index [BMI] 21.0-21.9, adult
CPT/HCPCS: 36415; 80053; 83540; 83550; 85025